=== PATIENT | female | born 1985 | race Caucasian/White ===

== ENCOUNTER 2020-03-31 14:52 | Inpatient (IN) | payer MEDICARE, OTHER ==
[2020-03-31 15:07] LABS: Glucose,Whole Blood 106 mg/dL (75-99)
[2020-03-31] MEDS ORDERED: SODIUM CHLORIDE 0.9% 1,000 ML IV STA ×2 (15:21)
[2020-03-31] MEDS ORDERED: HYDROCORTISONE SUCCINATE 100 MG/2 ML VIAL IV STA (15:26)
--- NOTE | 2020-03-31 15:27 | ED ---
General Adult HPI - General Chief complaint: Syncope Stated complaint: Syncope Time Seen by Provider: 03/31/20 15:06 Source: patient, RN notes reviewed, old records reviewed (Reports reviewed from [facility] including ED note and radiology reports and lab work) Mode of arrival: ambulatory Limitations: no limitations - History of Present Illness Initial comments: Patient is a pleasant 4-year-old female with complex past medical history presenting to the emergency Department as a transfer from [facility]. Patient went there for syncopal episode. Patient does not recall the episode, patient states she was sitting a chair however woke up on the floor. Patient has history of similar episodes once many years ago. Patient has not ate or drank anything yet today. Patient planes of feeling hungry. Patient states she has had some mild dysuria. Patient states her blood pressure is chronically low and believes and 85 blood pressure is fairly normal for her. Patient has not had her Cortef yet today. - Related Data Home Medications Medication Instructions Recorded Confirmed Desmopressin [Ddavp] 1 tab PO TID 02/06/14 04/10/14 Dexamethasone 0.5 mg PO QAM 02/06/14 04/10/14 Escitalopram [Lexapro] 20 mg PO HS 02/06/14 04/10/14 Estrogen,Con/M-Progest Acet 1 tab PO QAM 02/06/14 04/10/14 [Prempro 0.45-1.5 mg Tablet] Furosemide 20 mg PO QAM 02/06/14 04/10/14 Levothyroxine Sodium [Levoxyl] 175 mcg PO QAM 02/06/14 04/10/14 Methylphenidate HCl [Ritalin] 20 mg PO TID PRN 02/06/14 04/10/14 Multivitamins, Thera [Multivitamin] 1 tab PO DAILY 02/06/14 04/10/14 metFORMIN HCL [Glucophage] 500 mg PO BID 02/06/14 04/10/14 rOPINIRole HCL [Requip] 0.25 mg PO HS 02/06/14 04/10/14 Allergies Allergy/AdvReac Type Severity Reaction Status Date / Time No Known Allergies Allergy Verified 03/31/20 15:08 Review of Systems ROS Statement: Those systems with pertinent positive or pertinent negative responses have been documented in the HPI. ROS Other: All systems not noted in ROS Statement are negative. Constitutional: Denies: fever Eyes: Denies: eye pain ENT: Denies: ear pain Respiratory: Denies: dyspnea Cardiovascular: Denies: chest pain Endocrine: Denies: fatigue Gastrointestinal: Denies: abdominal pain Genitourinary: Reports: as per HPI Musculoskeletal: Denies: back pain Skin: Denies: rash Neurological: Denies: weakness Past Medical History Past Medical History: Memory Impairment, Sleep Apnea/CPAP/BIPAP Additional Past Medical History / Comment(s): narcolepsy, diabetes incipedus, varicos veins, History of Any Multi-Drug Resistant Organisms: None Reported Additional Past Surgical History / Comment(s): Brain Tumor removal x2 1998 and 2000 Past Anesthesia/Blood Transfusion Reactions: No Reported Reaction Past Psychological History: Depression Smoking Status: Never smoker Past Alcohol Use History: None Reported, Rare Past Drug Use History: None Reported - Past Family History Mother Family Medical History: Diabetes Mellitus General Exam Limitations: no limitations General appearance: alert, in no apparent distress Head exam: Present: atraumatic Eye exam: Present: normal appearance, PERRL ENT exam: Present: normal oropharynx Neck exam: Present: normal inspection. Absent: tenderness Respiratory exam: Present: normal lung sounds bilaterally Cardiovascular Exam: Present: regular rate, normal rhythm GI/Abdominal exam: Present: soft. Absent: tenderness Extremities exam: Present: normal inspection Neurological exam: Present: alert, CN II-XII intact. Absent: motor sensory deficit Expanded Motor strength exam: RUE: 5, LUE: 5, RLE: 5, LLE: 5 Eye Response: (4) open spontaneously Motor Response: (6) obeys commands Verbal Response: (5) oriented Psychiatric exam: Present: normal affect, normal mood Skin exam: Present: normal color Course Vital Signs 03/31/20 03/31/20 14:55 15:40 Temperature 97.8 F Pulse Rate 76 76 Respiratory 18 20 Rate Blood Pressure 86/50 97/62 O2 Sat by Pulse 100 100 Oximetry - Reevaluation(s) Reevaluation #1: 03/31/20 15:26 Case was discussed with Dr. Naylor who is aware of patient and would like call back if patient's symptoms change or worsen. 03/31/20 15:43 Blood cultures and lactic acid were done at [place] EKG Findings - EKG Comments: EKG Findings:: Normal sinus rhythm 69. MN 158. QRS 90. QT 406. QTc 435. Normal axis. Normal QRS. No acute ST change. Medical Decision Making - Medical Decision Making Patient to blood pressures in the upper 90s. Patient updated on results and plan. Dr. García has been paged for admission, covering for Dr. Marcelo, who admits for Dr. Gant. - Lab Data Result diagrams: 03/31/20 15:25 03/31/20 15:25 Lab Results 03/31/20 03/31/20 03/31/20 Range/Units 15:05 15:25 15:25 WBC 7.8 (3.8-10.6) k/uL RBC 5.01 (3.80-5.40) m/uL Hgb 14.4 (11.4-16.0) gm/dL Hct 43.1 (34.0-46.0) % MCV 85.9 (80.0-100.0) fL MCH 28.7 (25.0-35.0) pg MCHC 33.4 (31.0-37.0) g/dL RDW 13.5 (11.5-15.5) % Plt Count 244 (150-450) k/uL MPV 7.2 Neutrophils % 59 % Lymphocytes % 31 % Monocytes % 4 % Eosinophils % 4 % Basophils % 2 % Neutrophils # 4.6 (1.3-7.7) k/uL Lymphocytes # 2.4 (1.0-4.8) k/uL Monocytes # 0.3 (0-1.0) k/uL Eosinophils # 0.3 (0-0.7) k/uL Basophils # 0.2 (0-0.2) k/uL PT 10.4 (9.0-12.0) sec INR 1.0 (<1.2) APTT 22.2 (22.0-30.0) sec Sodium (137-145) mmol/L Potassium (3.5-5.1) mmol/L Chloride (98-107) mmol/L Carbon Dioxide (22-30) mmol/L Anion Gap mmol/L BUN (7-17) mg/dL Creatinine (0.52-1.04) mg/dL Est GFR (CKD-EPI)AfAm (>60 ml/min/1.73 sqM) Est GFR (CKD-EPI)NonAf (>60 ml/min/1.73 sqM) Glucose (74-99) mg/dL POC Glucose (mg/dL) 106 H (75-99) mg/dL POC Glu Water Supply Technician Noris Ramirez Calcium (8.4-10.2) mg/dL Magnesium (1.6-2.3) mg/dL Total Bilirubin (0.2-1.3) mg/dL AST (14-36) U/L ALT (4-34) U/L Alkaline Phosphatase (38-126) U/L Troponin I (0.000-0.034) ng/mL Total Protein (6.3-8.2) g/dL Albumin (3.5-5.0) g/dL Free T4 (0.78-2.19) ng/dL Free T3 pg/mL (2.8-5.3) pg/ml 03/31/20 03/31/20 03/31/20 Range/Units 15:25 15:25 15:37 WBC (3.8-10.6) k/uL RBC (3.80-5.40) m/uL Hgb (11.4-16.0) gm/dL Hct (34.0-46.0) % MCV (80.0-100.0) fL MCH (25.0-35.0) pg MCHC (31.0-37.0) g/dL RDW (11.5-15.5) % Plt Count (150-450) k/uL MPV Neutrophils % % Lymphocytes % % Monocytes % % Eosinophils % % Basophils % % Neutrophils # (1.3-7.7) k/uL Lymphocytes # (1.0-4.8) k/uL Monocytes # (0-1.0) k/uL Eosinophils # (0-0.7) k/uL Basophils # (0-0.2) k/uL PT (9.0-12.0) sec INR (<1.2) APTT (22.0-30.0) sec Sodium 143 (137-145) mmol/L Potassium 4.1 (3.5-5.1) mmol/L Chloride 108 H (98-107) mmol/L Carbon Dioxide 29 (22-30) mmol/L Anion Gap 6 mmol/L BUN 18 H (7-17) mg/dL Creatinine 0.55 (0.52-1.04) mg/dL Est GFR (CKD-EPI)AfAm >90 (>60 ml/min/1.73 sqM) Est GFR (CKD-EPI)NonAf >90 (>60 ml/min/1.73 sqM) Glucose 186 H (74-99) mg/dL POC Glucose (mg/dL) 96 (75-99) mg/dL POC Glu Water Supply Technician ID Mandi Alves Calcium 9.4 (8.4-10.2) mg/dL Magnesium 2.1 (1.6-2.3) mg/dL Total Bilirubin 0.5 (0.2-1.3) mg/dL AST 35 (14-36) U/L ALT 20 (4-34) U/L Alkaline Phosphatase 65 (38-126) U/L Troponin I <0.012 (0.000-0.034) ng/mL Total Protein 7.7 (6.3-8.2) g/dL Albumin 4.2 (3.5-5.0) g/dL Free T4 0.45 L (0.78-2.19) ng/dL Free T3 pg/mL 3.6 (2.8-5.3) pg/ml Disposition Clinical Impression: Syncope Disposition: ADMITTED IP TO THIS HOSP Is patient prescribed a controlled substance at d/c from ED?: No Referrals: Ronan Gant MD [Primary Care Provider] - 1-2 days Decision Time: 16:14
[2020-03-31 15:36] LABS: Basophils # (A) 0.2 k/uL (0-0.2); Basophils % (A) 2 %; Eosinophils # (A) 0.3 k/uL (0-0.7); Eosinophils % (A) 4 %; HCT 43.1 % (34.0-46.0); HGB 14.4 gm/dL (11.4-16.0); Lymphocytes # (A) 2.4 k/uL (1.0-4.8); Lymphocytes % (A) 31 %; MCH 28.7 pg (25.0-35.0); MCHC 33.4 g/dL (31.0-37.0); MCV 85.9 fL (80.0-100.0); Mean Platelet Volume 7.2; Monocytes # (A) 0.3 k/uL (0-1.0); Monocytes % (A) 4 %; Neutrophils # (A) 4.6 k/uL (1.3-7.7); Neutrophils % (A) 59 %; Platelet Count 244 k/uL (150-450); RBC 5.01 m/uL (3.80-5.40); RDW 13.5 % (11.5-15.5); WBC 7.8 k/uL (3.8-10.6)
[2020-03-31 15:45] LABS: ALT 20 U/L (4-34); AST 35 U/L (14-36); African American GFR (CKD) >90 (>60 ml/min/1.73 sqM); Albumin 4.2 g/dL (3.5-5.0); Alkaline Phosphatase 65 U/L (38-126); Anion Gap 6 mmol/L; Blood Urea Nitrogen 18 mg/dL (7-17); Calcium 9.4 mg/dL (8.4-10.2); Carbon Dioxide 29 mmol/L (22-30); Chloride 108 mmol/L (98-107); Glucose 186 mg/dL (74-99); Magnesium 2.1 mg/dL (1.6-2.3); Non-African American GFR(CKD) >90 (>60 ml/min/1.73 sqM); Potassium 4.1 mmol/L (3.5-5.1); Sodium 143 mmol/L (137-145); Total Bilirubin 0.5 mg/dL (0.2-1.3); Total Protein 7.7 g/dL (6.3-8.2)
[2020-03-31 15:48] LABS: Glucose,Whole Blood 96 mg/dL (75-99)
[2020-03-31 16:02] LABS: T4, Free (Free Thyroxine) 0.45 ng/dL (0.78-2.19)
[2020-03-31 16:05] LABS: Partial Thromboplastin Time 22.2 sec (22.0-30.0); Prothrombin Time 10.4 sec (9.0-12.0)
[2020-03-31] MEDS ORDERED: NALOXONE 0.4 MG/ML 1 ML VIAL IV PRN (16:14)
[2020-03-31] MEDS ORDERED: DEXTROSE 5%-0.45% NACL 1,000 ML IV SCH (17:15)
[2020-03-31 17:43] LABS: Glucose,Whole Blood 74 mg/dL (75-99)
[2020-03-31 19:04] LABS: Amphetamine Screen,Urine Detected (NotDetected); Barbiturate Screen,Urine Not Detected (NotDetected); Benzodiazepines Screen,Urine Not Detected (NotDetected); Cocaine Screen,Urine Not Detected (NotDetected); Methadone Screen, Urine Not Detected (NotDetected); Opiate Screen,Urine Not Detected (NotDetected); Oxycodone Screen, Urine Not Detected (NotDetected); Phencyclidine Screen,Urine Not Detected (NotDetected); Tricyclic Antidepressant,Urine Not Detected (NotDetected); Urn Cannabinoid Scrn Not Detected (NotDetected)
[2020-03-31] MEDS ORDERED: HYOSCYAMINE SULFATE 0.125 MG TAB PO STA (19:58)
[2020-03-31] MEDS: DOPamine DRIP 800 MG in DEXTROSE/WATER 1 250ML.BAG IV SCH (20:07)
--- NOTE | 2020-03-31 20:23 | P.EPPROC ---
- EP Procedure Note Electrophysiology Procedure Note: This is Dr. Schmitz dictating a consult on this patient The patient was interviewed and examined IMPRESSION / ASSESSMENT: Patient presented with syncope Recurrent sinus pauses up to 6 seconds Severe bradycardia Patient is quite drowsy at this time, appears very sleepy Alert and oriented when she opens her eyes and answers appropriately, makes appropriate comments Twelve-lead ECG shows sinus rhythm normal IA narrow QRS normal QT interval no J- point elevation no ST segment abnormalities in the precordial leads Past history of a brain tumor PLAN: Telemetry monitoring 3 S. transferred Low-dose dopamine infusion, IV Hyoscyamine by mouth 1 dose stat and thereafter long-acting This appears to be possibly vagally mediated However a CT of the brain and neuroimaging is elevated to look for any mass effect within the cranium that could explain this Neurology is already been consulted HPI Patient presented with syncope She doesn't give much of a history but she does make very appropriate comments whenever she opens her eyes She says she has been sleepy she does not clearly tell me whether she fell on lost consciousness She denies any chest discomfort she does not appear short of breath When she opens her eyes she wakes very appropriate comments. She remembers that she get some medications from [facility] [employer]. She knows she lives in [place] and that she was packing because she had to move She couldn't tell me why she was moving she remembers taking Adderall When I asked her why she was so sleepy she said she hasn't received any of her medications and hence she is very sleepy ROS: No fever chills or rigors, no cough, phlegm or expectoration, no nausea, vomiting or diarrhea, no hematuria, dysuria, no musculoskeletal complaints, no strokes or seizures, no skin lesions. EXAMINATION: Afebrile 97.4, pulse rate in the 60s and 70s Telemetry shows several episodes of sinus bradycardia and pauses up to 6 seconds Blood pressure 85/54 mmHg Looks very comfortable but very drowsy and sleepy line she does open her eyes and respond Normal heart sounds no murmurs no gallop or rub Breath sounds are reduced bilaterally on account of poor inspiratory effort but no rhonchi no crackles Abdomen is soft Central obesity noted No lower extremity edema REVIEW OF LABS, ECG & MEDICAL DATA She is a fairly long list of medications and I will look for interactions that could precipitate bradycardia and sinus pauses I spoke to the pharmacist and other than desmopressin which could cause variations in heart rate bold tachycardia and bradycardia there are no other medications that can be incriminated as a cause of her sinus pauses Labs are reviewed Normal white count normal hemoglobin and normal platelet count normal differential Normal sodium and potassium Urine creatinine is normal Glucose is elevated Normal troponins TSH 1.1 Drug screen, urine screen positive for amphetamines
[2020-03-31 21:27] LABS: Glucose,Whole Blood 91 mg/dL (75-99)
--- NOTE | 2020-03-31 21:43 | CT ---
EXAMINATION TYPE: CT brain wo con DATE OF EXAM: 03/31/2020 COMPARISON: Today HISTORY: ams CT DLP: 1172.4 mGycm Automated exposure control for dose reduction was used. Exam performed with no contrast. There is hypodensity in the inferior sawyer-white matter of the right frontal lobe. This is adjacent to the cribriform plate. There is no midline shift. There is no sign of intracranial hemorrhage. There is old right frontal and right temporal craniotomy defect. IMPRESSION: Hypodensity in the inferior right temporal lobe 3 x 1 cm consistent with encephalomalacia that is unc hanged compared to exam this morning. No acute intracranial abnormality.
[2020-04-01] MEDS ORDERED: HYDROCORTISONE SUCCINATE 100 MG/2 ML VIAL IV SCH
[2020-04-01] MEDS: HYOSCYAMINE SULFATE 0.375 MG TAB.ER.12H PO SCH ×3 (00:08→23:21)
[2020-04-01] MEDS: DOPamine DRIP 800 MG in DEXTROSE/WATER 1 250ML.BAG IV SCH ×2 (00:09→21:39)
[2020-04-01 05:22] LABS: Folate, Serum 22.4 ng/mL
[2020-04-01] MEDS: LEVOTHYROXINE 75 MCG TAB PO SCH (05:27)
[2020-04-01 05:47] LABS: Glucose,Whole Blood 137 mg/dL (75-99)
[2020-04-01] MEDS: MULTIVITAMINS, THERA 1 EACH TAB PO SCH (09:44)
[2020-04-01] MEDS: SERTRALINE 100 MG TAB PO SCH (09:44)
[2020-04-01] MEDS: PRAVASTATIN SODIUM 20 MG TAB PO SCH (09:44)
[2020-04-01] MEDS: HYDROCORTISONE 10 MG TAB PO SCH ×2 (09:45→15:06)
--- NOTE | 2020-04-01 11:16 | P.CNNES ---
History of Present Illness Consult date: 04/01/20 Requesting physician: Kulwant Tee Reason for Consult: syncope History of Present Illness: This is a 34 year-old woman with medical history of Right temporal tumor (benign) s/p resection in 1998 at [facility] and again in 1999 and/2000 at [facility], seizure, ADHD, memory impairment, narcolepsy, hypothy roidism, diabetes insepedius that was transfered from [facility] for a syncopal episode. He sent the was given limited information because of her memory loss. I attempted to contact the patient the grandmother was the next of kin and the patient mother who was present to contact via phone but only received voice messages. She stated that she does not recall the episode but remembers that the she was sitting in a chair and she woke up just before she landed on the floor. She said that she had urinary incontinence. She denies any bowel incontinence or tongue bites or soreness. Nobody was around or so she does not know if she had any jerking-like episode that. She has similar epi sodes in the past where she has episodes of falls. She cannot tell me exactly the details of her seizures or how frequent the episodes of loss of consciousness. She stated that she has narcolepsy so she is not sure of those episodes of loss of consciousness and urinary incontinence were seizures or narcolepsy. She cannot tell me exactly who she saw for her neurological workup in the past. She stated that it's been many years ago that she seems somebody. She was told that she had the history of seizures but cannot tell me what medications she was on or what medication she is currently on. 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 Workup in the hospital consisted of: Initial vital signs is the blood pressure of 86/58 with a heart rate of 76, respiratory of 18, temperature of 97.8 Fahrenheit oral and pulse ox of 90% at room air. CT of the head the was reported as hypodensity in the anterior right temporal lobe 3 x 1 cm consistent with encephalomalacia that is unchanged compared to the exam this morning. No acute intracranial abnormality. EKG is reported as the normal sinus rhythm. Ventricular rate of 69. Normal EKG. Initial white blood cell is 7.8 the Initial POC glucose is 106. The serum glucose is 186. Initial sodium was 143. Review of Systems Review of system: The 12 point system was reviewed and apparent positive and negative per HPI. Past Medical History Past Medical History: Memory Impairment, Sleep Apnea/CPAP/BIPAP Additional Past Medical History / Comment(s): narcolepsy, diabetes incipedus, varicos veins, History of Any Multi-Drug Resistant Organisms: None Reported Additional Past Surgical History / Comment(s): Brain Tumor removal x2 1998 and 2000 Past Anesthesia/Blood Transfusion Reactions: No Reported Reaction Past Psychological History: Depression Smoking Status: Never smoker Past Alcohol Use History: None Reported, Rare Past Drug Use History: None Reported - Past Family History Mother Family Medical History: Diabetes Mellitus Medications and Allergies Home Medications Medication Instructions Recorded Confirmed Type Furosemide 20 mg PO DAILY 02/06/14 03/31/20 History Multivitamins, Thera [Multivitamin] 1 tab PO DAILY 02/06/14 03/31/20 History Desmopressin Acetate 0.1 mg PO BID 03/31/20 03/31/20 History Hydrocortisone 5 mg PO DAILY@1600 03/31/20 03/31/20 History Hydrocortisone 10 mg PO DAILY 03/31/20 03/31/20 History Levothyroxine Sodium [Synthroid] 150 mcg PO DAILY 03/31/20 03/31/20 History Lisdexamfetamine Dimesylate 50 mg PO DAILY 03/31/20 03/31/20 History [Vyvanse] Loratadine 10 mg PO DAILY 03/31/20 03/31/20 History Meloxicam 15 mg PO DAILY 03/31/20 03/31/20 History Mirabegron [Myrbetriq] 50 mg PO DAILY 03/31/20 03/31/20 History Oxybutynin Chloride [Oxybutynin 15 mg PO DAILY 03/31/20 03/31/20 History Chloride ER] Potassium Chloride 10 meq PO DAILY 03/31/20 03/31/20 History Pravastatin Sodium [Pravachol] 20 mg PO DAILY 03/31/20 03/31/20 History Sertraline [Zoloft] 200 mg PO DAILY 03/31/20 03/31/20 History metFORMIN HCL [metFORMIN HCL ER] 500 mg PO BID 03/31/20 03/31/20 History Allergies Allergy/AdvReac Type Severity Reaction Status Date / Time No Known Allergies Allergy Verified 03/31/20 17:33 Physical Examination - Vital Signs Vital Signs: Vital Signs Temp Pulse Pulse Resp BP BP Pulse Ox 04/01/20 09:00 98.3 F 101 H 14 87/50 96 04/01/20 03:53 97.7 F 96 15 109/58 96 04/01/20 02:02 97.8 F 85 14 92/51 94 L 03/31/20 22:00 97.6 F 91 14 93/52 98 03/31/20 21:00 79 03/31/20 20:43 81 87/50 03/31/20 18:48 68 85/54 03/31/20 18:41 69 76/47 03/31/20 17:14 97.4 F L 73 18 90/58 100 03/31/20 16:48 76 20 98/61 100 03/31/20 15:40 76 20 97/62 100 03/31/20 14:55 97.8 F 76 18 86/50 100 Intake and Output 03/31/20 04/01/20 04/01/20 22:59 06:59 14:59 Intake Total 240 17.839 222 Output Total 525 2600 Balance -285 -2582.161 222 Intake: Intake, IV Titration 17.839 Amount DOPamine DRIP 800 mg In 17.839 Dextrose/Water 1 250ml. bag @ 2 MCG/KG/MIN 4.423 mls/hr IV .Q24H [facility] Rx#: [id number] Oral 240 222 Output: Urine 525 2600 Other: Voiding Method Indwelling Catheter Indwelling Catheter Weight 117.934 kg GENERAL: The patient is lying in bed and is not in acute distress. CHEST: The heart rate is regular rate rhythm. No murmurs to auscultation. No carotid bruit bilaterally. LUNG: Clear to auscultation bilaterally no wheezing noted throughout. Not labored breathing. ABDOMEN/GI: Bowel sounds present in all 4 quadrants. No tenderness to palpation throughout. NEUROLOGICAL: Higher mental function: The patient is awake, alert, oriented to self, place and time. Patient is following commands but slow to respond. No aphasia and no neglect. Cranial nerves: The pupils are round, equal (4mm)and reactive to light. Visual way: left upper quadrant hemianopsia to confrontation. Extraocular movement is intact no nystagmus is noted. Facial sensation is normal to touch throughout. The facial strength is normal throughout. Hearing is normal bilaterally to hand rub. Tongue is midline and moved [id number] without any difficulty. No dysarthria is noted. Shoulder shrug is normal bilaterally. Motor: Gait is deferred. The strength is 5 over 5 throughout. Normal tone and bulk. Cerebellum: Normal finger to nose bilaterally. Sensation: Sensation is normal to touch throughout. Reflexes (right/left): 2+ throughout. Plantars are downgoing bilaterally. Results Calcium is 9.4. AST of 35, ALC of 20. Ammonia is 79. Vitamin B12 is 597 which within normal limits. TSH is 1.10 with a free T4 is a 0.45. HCG nondetected. Her urine drug seen was positive for amphetamine. - Laboratory Findings CBC and BMP: 03/31/20 15:25 03/31/20 15:25 Abnormal Lab Findings: Abnormal Labs 03/31/20 03/31/20 03/31/20 15:05 15:25 16:51 Chloride 108 H BUN 18 H Glucose 186 H POC Glucose (mg/dL) 106 H Free T4 0.45 L Ur Amphetamines Screen Detected H 03/31/20 04/01/20 17:42 05:45 Chloride BUN Glucose POC Glucose (mg/dL) 74 L 137 H Free T4 Ur Amphetamines Screen Assessment and Plan Assessment: This is a 34 year-old woman with medical history of right temporal tumor (benign) s/p resection in 1998 at [facility] and again in at [facility], seizure, ADHD, memory impairment, narcolepsy, h ypothyroidism, diabetes insepedius that was transfered from [facility] for a syncopal episode. 1. Recurrent episode of loss of consciousness with urinary incontinence. Seems like epilepsy especially with history of right temporal tumor s/p resection. Cannot rule out narcolepsy as cause 2. History of right temporal tumor according to patient it's benign status post resection in 1998 as well as 3. Memory impairments likely due to #1 and #2 4. Narcolepsy 5. ADHD 6. History of diabetes insipidus Plan: Ordered routine EEG. I will start the patient on antiepileptic drug even if I don't see any epileptiform discharges or seizure on the EEG since I am concerned that these frequent episodes of loss of consciousness and urinary incontinence are seizures especially with a history of right the temporal tumor status post resection which the can be the focus of her seizures. I'll start the patient on Vimpat 50 mg twice a day. I'll also give the patient a loading dose of Vimpat. I did not start the patient on Keppra especially with her history of ADHD and possible underlying psych problems which Keppra can aggravate mood disorder. But if the Vimpat is too expensive, we can try Keppra and we'll see how the patient tolerates it. Electrophysiology team is on board. 2-D echo was ordered. The patient needs to follow-up with a neurologist as an outpatient within 1 week. Seizures are not detected on the routine EEGs then I recommend a shelter EEG or even epilepsy monitoring unit. I attempted to contact the patient the grandmother was the next the can and the the patient's mother was depressed but only received the voice messages. Thank you for the consultation. Duncan Slade M.D. Neuro-hospitalist Time with Patient: Greater than 30
[2020-04-01] MEDS ORDERED: LACOSAMIDE IV 150 MG in SODIUM CHLORIDE 0.9% 50 ML IVPB STA (11:22)
--- NOTE | 2020-04-01 15:07 | P.PN ---
Subjective Progress Note Date: 04/01/20 HISTORY OF PRESENT ILLNESS: Patient examined this morning at the bedside. Patient denies chest pain or pressure. She denies shortness of breath. No further episodes of syncope. property assessment monitor reveals heart rate in the 80s. Patient had a 2.8 second pause around midnight. She remains on dopamine at 2 mcg/kg/min. PHYSICAL EXAM: VITAL SIGNS: Reviewed. GENERAL: Well-developed in no acute distress. NECK: Supple. No JVD or thyromegaly LUNGS: Respirations even and unlabored. Lungs essentially clear to auscultation bilaterally. HEART: Regular rate and rhythm. S1 and S2 heard. EXTREMITIES: Normal range of motion. No clubbing or cyanosis. Peripheral p ulses intact. No lower extremity edema ASSESSMENT: Syncope Recurrent sinus pauses up to 6 seconds Severe bradycardia History of benign right temporal brain tumor, status post resection in 1998 and also in Memory impairment Narcolepsy ADHD Hypothyroidism History of adrenal insufficiency PLAN: Neurology consulted who feels recurrent episodes of syncope may be secondary to epilepsy. Patient has been started on Vimpat. 2-D echo has been ordered. Await results Wean off Dopamine if heart rate tolerates Further recommendations pending patient course Nurse practitioner note has been reviewed by physician. Signing provider agrees with the documented findings, assessment, and plan of care. Objective - Vital Signs Vital signs: Vital Signs Temp 98.3 F 04/01/20 09:00 Pulse 101 H 04/01/20 09:00 Resp 14 04/01/20 09:00 BP 87/50 04/01/20 09:00 Pulse Ox 96 04/01/20 09:00 Intake & Output 03/31/20 04/01/20 04/01/20 18:59 06:59 18:59 Intake Total 240 17.839 222 Output Total 3125 Balance 240 -3107.161 222 Weight 117.934 kg Intake: Intake, IV Titration 17.839 Amount DOPamine DRIP 800 mg In 17.839 Dextrose/Water 1 250ml. bag @ 2 MCG/KG/MIN 4.423 mls/hr IV .Q24H [facility] Rx#: [id number] Oral 240 222 Output: Urine 3125 Other: Voiding Method Indwelling Catheter - Labs CBC & Chem 7: 03/31/20 15:25 03/31/20 15:25 Labs: Abnormal Lab Results - Last 24 Hours (Table) 03/31/20 03/31/20 03/31/20 Range/Units 15:05 15:25 16:51 Chloride 108 H (98-107) mmol/L BUN 18 H (7-17) mg/dL Glucose 186 H (74-99) mg/dL POC Glucose (mg/dL) 106 H (75-99) mg/dL Free T4 0.45 L (0.78-2.19) ng/dL Ur Amphetamines Screen Detected H (NotDetected) 03/31/20 04/01/20 Range/Units 17:42 05:45 Chloride (98-107) mmol/L BUN (7-17) mg/dL Glucose (74-99) mg/dL POC Glucose (mg/dL) 74 L 137 H (75-99) mg/dL Free T4 (0.78-2.19) ng/dL Ur Amphetamines Screen (NotDetected) Microbiology - Last 24 Hours (Table) 03/31/20 16:51 Urine Culture - Preliminary Urine,Catheterized
--- NOTE | 2020-04-01 16:01 | HP ---
HISTORY AND PHYSICAL DATE OF SERVICE: 04/01/2020. CHIEF COMPLAINT: Recurrent episodes of syncope. HISTORY OF PRESENT ILLNESS: This 34-year-old woman with a past medical history of memory impairment, history of left inferior frontal brain tumor removal, apparently benign, twice in 1998 and 2000, history of narcolepsy, history of diabetes insipidus, varicose veins, is followed by Dr. Gant in the outpatient setting. She was complaining of syncope. The patient had syncope last night. The patient went to [facility] and the patient was transferred to [facility] for further evaluation and treatment. The patient is unable to recall the episode. The patient was sitting in a chair and woke up on the floor. Similar episodes were happening previously a year ago. EKG showed prolonged sinus pauses and sinus bradycardia. Neurology evaluation was done. Dr. Song has recommended empirical antiplatelet therapy because of the previous history of multiple brain surgeries. There is no history of any fever, rigor or chills. No history of headache, loss of consciousness, seizures. PAST MEDICAL HISTORY: History of sleep apnea, history of CPAP, BiPAP, history of memory impairment, history of narcolepsy, diabetes mellitus, varicose veins, history of depression. HOME MEDICATIONS: 1. Hydrocortisone 5 mg and 10 mg. 2. Pravachol. 3. Multivitamins. 4. Loratadine. 5. Vyvanse. 6. Zoloft. 7. Furosemide. 8. Synthroid. 9. Desmopressin. 10.KCl. 11.Metformin. 12.Oxybutynin. 13.Myrbetriq. 14.Meloxicam. ALLERGIES: NONE. FAMILY HISTORY: History of diabetes mellitus in the family. SOCIAL HISTORY: No history of smoking. No history of alcohol. REVIEW OF SYSTEMS: ENT: As mentioned earlier. CARDIOVASCULAR SYSTEM: No angina, palpitations. RESPIRATORY SYSTEM: No cough, hemoptysis. GI: No nausea, vomiting. : No dysuria or retention. NERVOUS SYSTEM: As mentioned earlier. ALLERGY/IMMUNOLOGY: No asthma, hayfever. MUSCULOSKELETAL: No history of arthritis. CONSTITUTIONAL: As mentioned earlier.. DERMATOLOGY: Negative. ENDOCRINE: As mentioned earlier. RHEUMATOLOGY: As mentioned earlier. PSYCHIATRY: Negative. PHYSICAL EXAMINATION: Patient alert and oriented x3. Pulse 101, blood pressure 109/58, respiration 15, temperature 97.7, pulse ox 96% on room air. HEENT: Conjunctivae normal. Oral mucosa moist. Vision is diminished bilaterally. NECK: No jugular venous distention. No carotid bruit. No lymph node enlargement. CARDIOVASCULAR SYSTEM: S1, S2 muffled. No S3. No S4. RESPIRATORY SYSTEM: Breath sounds diminished at the bases. No rhonchi. No crackles. ABDOMEN: Soft, non-tender. No mass palpable. LEGS: No edema. No swelling. NERVOUS SYSTEM: Higher functions as mentioned earlier. The vision is diminished. No focal motor or sensory deficit. LYMPHATICS: No lymph node palpable in neck, axillae or groin. SKIN: No ulcer, rash, bleeding. JOINTS: No active deforming arthropathy. LABS: Labs at this time show glucose 137, vitamin B cortisol is normal. Sodium 143, potassium 4.1. Free T4 is 0.45, but free T3 is normal. TSH is also normal. ASSESSMENT: 1. Recurrent episodes of syncope, possibly cardiac syncope induced by prolonged sinus pauses. 2. Rule out epilepsy. 3. Decreased free T4. 4. Increased random blood sugar. 5. History of memory impairment. 6. History of left inferior temporal lobe brain tumor removal, possibly benign, twice in 1998 and 2000. 7. History of diabetes insipidus. 8. History of hypocortisolism. 9. History of narcolepsy. 10.History of varicose veins. 11.History of sleep apnea. 12.History of depression. 13.Obesity with body mass index 49.1. 14.FULL CODE. RECOMMENDATIONS AND DISCUSSION: In this 34-year-old woman who presented with multiple medical issues, at this time I recommend to continue the current medication, continue with symptomatic treatment. Otherwise at this time I recommend continuing with the Vimpat recommended by Dr. Slade, neurologist. Otherwise, continue the previous dose of steroids. Continue with telemetry. Empiric antibiotics have been given. The prognosis is guarded because of multiple complex medical issues. Further recommendations to follow. A copy of this dictation is being forwarded to Dr. Gant, who is the primary physician. MMRAMIROL / NIKON: [id number] / MTDD
--- NOTE | 2020-04-01 19:48 | EEG ---
ELECTROENCEPHALOGRAM REPORT DATE OF SERVICE: 04/01/2020 CLINICAL HISTORY: This is a 34-year-old woman with a history of right temporal mass, status post resection in 1998, and another surgeryin , seizure and narcolepsy. She was transferred from an outside facility for an episode of loss of consciousness. This video EEG was obtained to evaluate for seizure and epileptiform activity. RELEVANT MEDICATION: Unknown. EEG TYPE: A routine 21-channel EEG was performed with video using the 10/20 electrode placement system. DESCRIPTION: Wakefulness and drowsiness are obtained. During wakefulness there is a posterior-dominant rhythm of low to moderate voltage, well modulated 6-7 hertz over bilateral hemispheres. During drowsiness there is slowing and attenuation of the background activity. There was no physiological stage II sleep seen over bilateral hemispheres. There is frequent moderate voltage nonrhythmic frontal central temporal 3-4 hertz delta slowing over bilateral hemispheres, the right more than the left. There is a high voltage over the right frontal central electrode consistent with the patient's previous history of breach. Interictal and ictal: None. ACTIVATION PROCEDURES: Photic stimulation did not evoke a posterior driving response. Hyperventilation was not performed. CLINICAL INTERPRETATION: This is an abnormal routine EEG. The background slowing is consistent with mild to moderate encephalopathy of nonspecific etiology. The focal slowing noted above is suggestive of focal cerebral dysfunction. She does have a history of a right temporal mass. 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 There are no epileptiform discharges or seizure seen during this study. Clinical correlation is recommended. MMODL / IJN: [id number] / [facility]
[2020-04-01] MEDS: LACOSAMIDE 50 MG TABLET PO SCH (20:08)
[2020-04-02] MEDS: LEVOTHYROXINE 75 MCG TAB PO SCH (06:04)
[2020-04-02] MEDS: LACOSAMIDE 50 MG TABLET PO SCH ×2 (09:29→20:28)
[2020-04-02] MEDS: PRAVASTATIN SODIUM 20 MG TAB PO SCH (09:29)
[2020-04-02] MEDS: MULTIVITAMINS, THERA 1 EACH TAB PO SCH (09:29)
[2020-04-02] MEDS: SERTRALINE 100 MG TAB PO SCH (09:29)
[2020-04-02] MEDS: HYDROCORTISONE 10 MG TAB PO SCH ×2 (09:30→16:33)
[2020-04-02] MEDS: HYOSCYAMINE SULFATE 0.375 MG TAB.ER.12H PO SCH ×2 (13:05→23:55)
--- NOTE | 2020-04-02 13:20 | P.PN ---
Subjective Progress Note Date: 04/02/20 HISTORY OF PRESENT ILLNESS: Patient examined this morning at the bedside. Patient denies chest pain or pressure. She denies shortness of breath. No further episodes of syncope. pvc monitor reveals heart rate in the 80s. She remains on dopamine at 2 mcg/kg/min. Nursing reports they attempted to wean off dopamine but the patient's heart rate was in the 40s overnight. The patient was asymptomatic however. TSH 1.100. Free T4 0.45. PHYSICAL EXAM: VITAL SIGNS: Reviewed. GENERAL: Well-developed in no acute distress. NECK: Supple. No JVD or thyromegaly LUNGS: Respirations even and unlabored. Lungs essentially clear to auscultation bilaterally. HEART: Regular rate and rhythm. S1 and S2 heard. EXTREMITIES: Normal range of motion. No clubbing or cyanosis. Peripheral pulses intact. No lower extremity edema ASSESSMENT: Syncope Recurrent sinus pauses up to 6 seconds Severe bradycardia History of benign right temporal brain tumor, status post resection in 1998 and also in Memory impairment Narcolepsy ADHD Hypothyroidism History of adrenal insufficiency PLAN: Neurology consulted who feels recurrent episodes of syncope may be secondary to epilepsy. Patient has been started on Vimpat. 2-D echo has been ordered. Await results Wean off Dopamine if heart rate tolerates Patient with abnormal free T4. Patient may need adjustment in her Synthroid. Will defer to internal medicine Further recommendations pending patient course Nurse practitioner note has been reviewed by physician. Signing provider agrees with the documented findings, assessment, and plan of care. Objective - Vital Signs Vital signs: Vital Signs Temp 98.1 F 04/02/20 12:00 Pulse 88 04/02/20 12:00 Resp 16 04/02/20 12:00 BP 129/69 04/02/20 12:00 Pulse Ox 96 04/02/20 12:00 Intake & Output 04/01/20 04/02/20 04/02/20 18:59 06:59 18:59 Intake Total 751.893 120 Output Total 800 2575 Balance -48.107 -2575 120 Weight 40.5 kg Intake: Intake, IV Titration 67.893 Amount DOPamine DRIP 800 mg In 67.893 Dextrose/Water 1 250ml. bag @ 2 MCG/KG/MIN 4.423 mls/hr IV .Q24H [facility] Rx#: [id number] Oral 684 120 Output: Urine 800 2575 Other: Voiding Method Indwelling Catheter Indwelling Catheter Indwelling Catheter - Labs CBC & Chem 7: 03/31/20 15:25 03/31/20 15:25 Labs: Microbiology - Last 24 Hours (Table) 03/31/20 16:51 Urine Culture - Preliminary Urine,Catheterized Gram Neg Bacilli
[2020-04-02 13:46] VITALS: BMI 16.8
--- NOTE | 2020-04-02 14:39 | P.PN ---
Subjective Progress Note Date: 04/02/20 Patient was seen at bedside and the she stated that she's doing well. No further seizure-like episodes. Objective - Vital Signs Vital signs: Vital Signs Temp 98.1 F 04/02/20 12:00 Pulse 88 04/02/20 12:00 Resp 16 04/02/20 12:00 BP 129/69 04/02/20 12:00 Pulse Ox 96 04/02/20 12:00 Intake & Output 04/01/20 04/02/20 04/02/20 18:59 06:59 18:59 Intake Total 751.893 120 Output Total 800 2575 Balance -48.107 -2575 120 Weight 40.5 kg 40.5 kg Intake: Intake, IV Titration 67.893 Amount DOPamine DRIP 800 mg In 67.893 Dextrose/Water 1 250ml. bag @ 2 MCG/KG/MIN 4.423 mls/hr IV .Q24H [facility] Rx#: [id number] Oral 684 120 Output: Urine 800 2575 Other: Voiding Method Indwelling Catheter Indwelling Catheter Indwelling Catheter - Exam GENERAL: The patient is lying in bed and is not in acute distress. NEUROLOGICAL: Higher mental function: The patient is awake, alert, oriented to self, place and time. Patient is following commands but slow to respond. No aphasia and no neglect. Cranial nerves: The pupils are round, equal (4mm)and reactive to light. Visual way: left upper quadrant hemianopsia to confrontation. Extraocular movement is intact no nystagmus is noted. Facial sensation is normal to touch throughout. The facial strength is normal throughout. Hearing is normal dani aterally to hand rub. Tongue is midline and moved [id number] without any difficulty. No dysarthria is noted. Shoulder shrug is normal bilaterally. Motor: Gait is deferred. The strength is 5 over 5 throughout. Normal tone and bulk. Cerebellum: Normal finger to nose bilaterally. Sensation: Sensation is normal to touch throughout. Reflexes (right/left): 2+ throughout. Plantars are downgoing bilaterally. - Labs CBC & Chem 7: 03/31/20 15:25 03/31/20 15:25 Labs: Microbiology - Last 24 Hours (Table) 03/31/20 16:51 Urine Culture - Preliminary Urine,Catheterized Gram Neg Bacilli Assessment and Plan Assessment: This is a 34 year-old woman with medical history of right temporal tumor (benign) s/p resection in 1998 at [facility] and again in at [facility], seizure, ADHD, memory impairment, narcolepsy, hypothyroidism, diabetes insepedius that was transfered from [facility] for a syncopal episode. 1. Recurrent episode of loss of consciousness with urinary incontinence. Seems like epilepsy especially with history of right temporal tumor s/p resection. Cannot rule out narcolepsy as cause. 2. History of right temporal tumor according to patient it's benign status post resection in 1998 as well as 3. Memory impairments likely due to #1 and #2 4. Narcolepsy 5. ADHD 6. History of diabetes insipidus Plan: * Routine EEG on 04/01/20: The agitation was an abnormal routine EEG at. The back of slowing is consistent with mild to moderate encephalopathy of nonspecific etiology. The focal slowing the frontocentral temporal region more over the right than the left is suggestive of focal cerebral dysfunction. There is breach over the right frontocentral region is consistent with the patient skull defect from previous surgery. There are no epidural discharges or seizure seen on the EEG. * I loaded the patient was Vimpat 150 mg once on 04/01/2020 then started the patient on Vimpat 50 mg twice a day because I felt her episodes were likely due to epilepsy especially with the history of right temporal tumor s/p resection which is a focus for seizure I'll start the patient on Vimpat 50 mg twice a day. I'll also give the patient a loading dose of Vimpat. * I did not start the patient on Keppra especially with her history of ADHD and possible underlying psych problems which Keppra can aggravate mood disorder. But if the Vimpat is too expensive, we can try Keppra and we'll see how the patient tolerates it. * Electrophysiology team is on board. * The patient needs to follow-up with a neurologist as an outpatient within 1-2 week. * I recommend buttermaker continuous churn EEG as outpatient or even epilepsy monitoring unit to capture the events wether they are truly seizures. I attempted to contact the patient the grandmother was the next the can and the the patient's mother was depressed but only received the voice messages. No further work-up. The plan was discussed with the patient nurse Duncan Slade M.D. Neuro-hospitalist Time with Patient: Less than 30
[2020-04-02] MEDS: NEOMYCIN-BACITRACIN-POLY OINT 14 GM TUBE TOPICAL SCH (20:28)
[2020-04-02] MEDS: metFORMIN 500 MG TAB PO SCH (20:28)
[2020-04-02] MEDS: DESMOPRESSIN 0.2 MG TAB PO SCH (20:28)
[2020-04-02] MEDS: DOPamine DRIP 800 MG in DEXTROSE/WATER 1 250ML.BAG IV SCH (20:29)
--- NOTE | 2020-04-02 23:14 | PN ---
PROGRESS NOTE DATE OF SERVICE: 04/02/2020 This 34-year-old woman admitted with recurrent syncope is being closely monitored. Dr. Slade has recommended antiepileptic treatment with Vimpat. The EEG showed some focal slowing suggestive of focal cerebral dysfunction. The patient had history of right temporal mass and surgery also. Cardiology has seen the patient and recommended to keep the patient on a small dose of dopamine and wean off subsequently. The patient had abnormal free T4, but I will increase adjustment of the thyroid also. The cortisol level was only 2. PAST MEDICAL HISTORY: History reviewed. REVIEW OF SYSTEMS: CARDIOVASCULAR: No angina or palpitations. RESPIRATORY: as mentioned earlier. GI: As mentioned earlier. : No dysuria. NERVOUS SYSTEM: No focal deficits. CURRENT MEDICATIONS: Reviewed and include: Rocephin, Dopamine, Cortef, Levbid, Vimpat, Synthroid, multivitamins and Narcan. Doses reviewed. PHYSICAL EXAMINATION: Alert and oriented x3. Pulse 81, blood pressure 109/68, respiration 18. Temp 97.2. Pulse ox 100% on room air. HEENT: Conjunctivae normal. NECK: No JVD. CARDIOVASCULAR: S1, S2. RESPIRATORY SYSTEM: Breath sounds diminished at the bases. Scattered rhonchi and crackles. ABDOMEN: Soft. Nontender. LEGS are no edema. No swelling. NERVOUS SYSTEM: No focal deficits. LABORATORY DATA: CBC within normal limits and glucose 137. Other labs are noted. ASSESSMENT: 1. Recurrent episodes of syncope possibly secondary to cardiac syncope and prolonged sinus pauses. 2. Bradycardia. 3. Possible epilepsy. 4. Decreased free T4 with hypothyroidism. 5. Increased random blood sugar. 6. History of memory impairment. 7. Decreased cortisol with hypo system. 8. History of inferior anti temporal lobe brain tumor removal, possibly benign twice 1998 and 2000. 9. History of diabetes insipidus. 10.History of narcolepsy. 11.History of varicose veins. 12.History of sleep apnea. 13.History of depression. 14.Obesity with body mass of 49.1. 15.FULL CODE. RECOMMENDATIONS AND DISCUSSION: I recommend to continue current medications, symptomatic treatment. Otherwise, closely follow with Cardiology. Neurology. Vimpat empirically. I would also recommend increase the levothyroxine dose to 200 mcg and increase the hydrocortisone dose to 10 twice daily and continue to monitor. Increase the hydrocortisone dose to 15 mg daily and 7.5 mg in the evening. The overall prognosis guarded because of multiple complex medical conditions. Further recommendations to follow. Recommend endocrine consult as an outpatient. MMODL / IJN: [id number] / BRYCE
[2020-04-03] MEDS: LEVOTHYROXINE 100 MCG TAB PO SCH (06:27)
[2020-04-03] MEDS: metFORMIN 500 MG TAB PO SCH ×2 (06:32→17:37)
[2020-04-03] MEDS: NON FORMULARY DRUG (Lisdexamfetamine Dimesylate [Vyvanse] 50 MG Capsule) PO SCH (08:03)
[2020-04-03] MEDS: POTASSIUM CHLORIDE ER 10 MEQ TAB.ER.PRT PO SCH (08:04)
[2020-04-03] MEDS: MELOXICAM 7.5 MG TAB PO SCH (08:04)
[2020-04-03] MEDS: SERTRALINE 100 MG TAB PO SCH (08:04)
[2020-04-03] MEDS: PRAVASTATIN SODIUM 20 MG TAB PO SCH (08:05)
[2020-04-03] MEDS: HYDROCORTISONE 10 MG TAB PO SCH ×2 (08:05→15:28)
[2020-04-03] MEDS: DESMOPRESSIN 0.2 MG TAB PO SCH ×2 (08:05→20:16)
[2020-04-03] MEDS: LORATADINE 10 MG TAB PO SCH (08:05)
[2020-04-03] MEDS: MULTIVITAMINS, THERA 1 EACH TAB PO SCH (08:05)
[2020-04-03] MEDS: NON FORMULARY DRUG (Mirabegron [Myrbetriq] 50 MG Tab.Er.24h) PO SCH (08:06)
[2020-04-03] MEDS: LACOSAMIDE 50 MG TABLET PO SCH ×2 (08:06→20:17)
[2020-04-03] MEDS: OXYBUTYNIN 15 MG TAB.ER.24 PO SCH (09:41)
[2020-04-03] MEDS: FUROSEMIDE 20 MG TAB PO SCH (09:41)
--- NOTE | 2020-04-03 11:32 | P.PN ---
Subjective Progress Note Date: 04/03/20 She was seen at bedside and she said that she's doing well. She denies any further episodes of loss of consciousness or urinary incontinence. No further seizure-like episodes is noted by the nurse. Again the unable to get a hold off any family members regarding the patient's condition. Objective - Vital Signs Vital signs: Vital Signs Temp 97.4 F L 04/03/20 07:59 Pulse 82 04/03/20 07:59 Resp 16 04/03/20 08:00 BP 113/84 04/03/20 09:40 Pulse Ox 99 04/03/20 07:59 Intake & Output 04/02/20 04/03/20 04/03/20 18:59 06:59 18:59 Intake Total 534.943 120 Output Total 1 Balance 533.943 120 Weight 40.5 kg 110.6 kg Intake: Intake, IV Titration 54.943 Amount DOPamine DRIP 800 mg In 54.943 Dextrose/Water 1 250ml. bag @ 2 MCG/KG/MIN 4.423 mls/hr IV .Q24H [facility] Rx#: [id number] Oral 480 120 Output: Urine 1 Other: Voiding Method Indwelling Catheter Bedside Commode # Voids 1 1 - Exam GENERAL: The patient is lying in bed and is not in acute distress. HENT: Has scar from midline for superior right anterior forehead just around the hairline (from prior surgery). NEUROLOGICAL: Higher mental function: The patient is awake, alert, oriented to self, place and time. Patient is following commands but slow to respond. No aphasia and no neglect. Cranial nerves: The pupils are round, equal (4mm)and reactive to light. Visual way: left upper quadrant hemianopsia to confrontation. Extraocular movement is intact no nystagmus is noted. Facial sensation is normal to touch thr oughout. The facial strength is normal throughout. Hearing is normal bilaterally to hand rub. Tongue is midline and moved [id number] without any difficulty. No dysarthria is noted. Shoulder shrug is normal bilaterally. Motor: Gait is deferred. The strength is 5 over 5 throughout. Normal tone and bulk. Cerebellum: Normal finger to nose bilaterally. Sensation: Sensation is normal to touch throughout. Reflexes (right/left): 2+ throughout. Plantars are downgoing bilaterally. - Labs CBC & Chem 7: 03/31/20 15:25 03/31/20 15:25 Labs: Microbiology - Last 24 Hours (Table) 03/31/20 16:51 Urine Culture - Final Urine,Catheterized Escherichia coli Assessment and Plan Assessment: This is a 34 year-old woman with medical history of right temporal tumor (be nign) s/p resection in 1998 at [facility] and again in at [facility], seizure, ADHD, memory impairment, narcolepsy, hypothyroidism, diabetes insepedius that was transfered from [facility] for a syncopal episode. 1. Recurrent episode of loss of consciousness with urinary incontinence. Seems like epilepsy especially with history of right temporal tumor s/p resection. Cannot rule out narcolepsy as cause. 2. History of right temporal tumor according to patient it's benign status post resection in 1998 as well as 3. Memory impairments likely due to #1 and #2 4. Narcolepsy 5. ADHD 6. History of diabetes insipidus Plan: * Routine EEG on 04/01/20: The agitation was an abnormal routine EEG at. The back of slowing is consistent with mild to moderate encephalopathy of nonspecific etiology. The focal slowing the frontocentral temporal region more over the right than the left is suggestive of focal cerebral dysfunction. There is breach over the right frontocentral region is consistent with the patient skull defect from previous surgery. There are no epidural discharges or seizure seen on the EEG. * I loaded the patient was Vimpat 150 mg once on 04/01/2020 then started the patient on Vimpat 50 mg twice a day because I felt her episodes were likely due to epilepsy especially with the history of right temporal tumor s/p resection which is a focus for seizure I'll start the patient on Vimpat 50 mg twice a day. I'll also give the patient a loading dose of Vimpat. * I did not start the patient on Keppra especially with her history of ADHD and possible underlying psych problems which Keppra can aggravate mood disorder. But if the Vimpat is too expensive, we can try Keppra and we'll see how the patient tolerates it. * Electrophysiology team is on board. * The patient needs to follow-up with a neurologist as an outpatient within 1-2 week. * I recommend roasterman EEG as outpatient or even epilepsy monitoring unit to capture the events wether they are truly seizures. * I also recommend sleep study as outpatient. * Patient needs to follow-up with a neurologist as an outpatient, as well as the neurosurgery team within 2 weeks. I attempted to contact the patient the grandmother was the next the can and the the patient's mother was depressed but only received the voice messages. No further work-up. The plan was discussed with the patient nurse Duncan Slade M.D. Neuro-hospitalist Time with Patient: Less than 30
[2020-04-03 12:35] LABS: Basophils % (A) 1 %; Eosinophils # (A) 0.3 k/uL (0-0.7); Eosinophils % (A) 6 %; HGB 12.1 gm/dL (11.4-16.0); Lymphocytes # (A) 1.7 k/uL (1.0-4.8); Lymphocytes % (A) 31 %; MCH 28.3 pg (25.0-35.0); MCHC 32.9 g/dL (31.0-37.0); Mean Platelet Volume 7.5; Monocytes # (A) 0.2 k/uL (0-1.0); Monocytes % (A) 3 %; Neutrophils # (A) 3.2 k/uL (1.3-7.7); Neutrophils % (A) 58 %; Platelet Count 174 k/uL (150-450); RDW 13.9 % (11.5-15.5); WBC 5.5 k/uL (3.8-10.6)
[2020-04-03 12:49] LABS: African American GFR (CKD) >90 (>60 ml/min/1.73 sqM); Anion Gap 6 mmol/L; Blood Urea Nitrogen 18 mg/dL (7-17); Calcium 8.6 mg/dL (8.4-10.2); Carbon Dioxide 28 mmol/L (22-30); Chloride 107 mmol/L (98-107); Glucose 104 mg/dL (74-99); Non-African American GFR(CKD) >90 (>60 ml/min/1.73 sqM); Potassium 3.7 mmol/L (3.5-5.1); Sodium 141 mmol/L (137-145)
[2020-04-03] MEDS: HYOSCYAMINE SULFATE 0.375 MG TAB.ER.12H PO SCH ×2 (13:42→23:12)
[2020-04-03] MEDS: NEOMYCIN-BACITRACIN-POLY OINT 14 GM TUBE TOPICAL SCH ×2 (13:42→20:17)
--- NOTE | 2020-04-03 14:31 | P.PN ---
Subjective Progress Note Date: 04/03/20 HISTORY OF PRESENT ILLNESS: Patient examined this morning at the bedside. Patient denies chest pain or pressure. She denies shortness of breath. No further episodes of syncope. Patient has been weaned off dopamine. No further episodes of bradycardia or pauses. Her Synthroid dose has been adjusted per internal medicine. PHYSICAL EXAM: VITAL SIGNS: Reviewed. GENERAL: Well-developed in no acute distress. NECK: Supple. No JVD or thyromegaly LUNGS: Respirations even and unlabored. Lungs essentially clear to auscultation bilaterally. HEART: Regular rate and rhythm. S1 and S2 heard. EXTREMITIES: Normal range of motion. No clubbing or cyanosis. Peripheral pulses intact. No lower extremity edema ASSESSMENT: Syncope Recurrent sinus pauses up to 6 seconds Severe bradycardia History of benign right temporal brain tumor, status post resection in 1998 and also in Memory impairment Narcolepsy ADHD Hypothyroidism History of adrenal insufficiency PLAN: Continue current cardiac medications Patient is stable for discharge from a cardiac perspective We will follow on an as-needed basis. Please call with questions or concerns Nurse practitioner note has been reviewed by physician. Signing provider agrees with the documented findings, assessment, and plan of care. Objective - Vital Signs Vital signs: Vital Signs Temp 98 F 04/03/20 13:40 Pulse 78 04/03/20 13:40 Resp 16 04/03/20 13:40 BP 102/58 04/03/20 13:40 Pulse Ox 99 04/03/20 13:40 Intake & Output 04/02/20 04/03/20 04/03/20 18:59 06:59 18:59 Intake Total 534.943 240 Output Total 1 1500 Balance 533.943 -1260 Weight 40.5 kg 110.6 kg Intake: Intake, IV Titration 54.943 Amount DOPamine DRIP 800 mg In 54.943 Dextrose/Water 1 250ml. bag @ 2 MCG/KG/MIN 4.423 mls/hr IV .Q24H [facility] Rx#: [id number] Oral 480 240 Output: Urine 1 1500 Other: Voiding Method Indwelling Catheter Bedside Commode # Voids 1 1 - Labs CBC & Chem 7: 04/03/20 11:53 04/03/20 11:53 Labs: Abnormal Lab Results - Last 24 Hours (Table) 04/03/20 Range/Units 11:53 BUN 18 H (7-17) mg/dL Glucose 104 H (74-99) mg/dL Microbiology - Last 24 Hours (Table) 03/31/20 16:51 Urine Culture - Final Urine,Catheterized Escherichia coli
--- NOTE | 2020-04-03 16:19 | PN ---
PROGRESS NOTE DATE OF SERVICE: 04/03/2020 This 34-year-old woman who was admitted with recurrent episodes of syncope, possibly secondary to cardiac syncope and prolonged sinus pause, also had suspected seizure disorder. Now the patient has significant gait dysfunction. The patient apparently had a legal guardian. The patient was living in a house, where the patient had problems with the landlord, and the patient is supposed to move to an [facility] home at this time. The patient is being closely monitored. EEG has been reviewed. Dr. Slade from Neurology is following the patient closely. Past medical history reviewed. REVIEW OF SYSTEMS: CARDIOVASCULAR SYSTEM: No angina, palpitations. Otherwise as mentioned earlier. RESPIRATORY SYSTEM: No cough, hemoptysis. GI: As mentioned earlier. : No dysuria or retention. NERVOUS SYSTEM: As mentioned earlier. CURRENT MEDICATIONS: Reviewed. They include Rocephin 1 gram daily, desmopressin, dopamine, Cortef, Levbid, Vimpat, Synthroid, Claritin, Mobic, multivitamins, Ditropan, K-Dur, Pravachol, Zoloft. PHYSICAL EXAMINATION: Patient is alert, oriented x3. Pulse 78, blood pressure 102/58, respiration 16, temperature 98 degrees, pulse ox 99% on room air. HEENT: Conjunctivae normal. NECK: No jugular venous distention. CARDIOVASCULAR SYSTEM: S1, S2 muffled. RESPIRATORY SYSTEM: Breath sounds diminished at the bases. Bilateral scattered rhonchi and crackles. ABDOMEN: Soft, non-tender. LEGS: No edema. No swelling. NERVOUS SYSTEM: Diffusely weak. LABS: CBC within normal limits. BMP noted. Cortisol is 2. ASSESSMENT: 1. Recurrent episodes of syncope, possibly secondary to cardiac syncope and prolonged sinus pause. 2. Bradycardia. 3. Possible epilepsy. 4. Decreased free T4 with hypothyroidism. 5. Decreased serum cortisol with hypocortisolism. 6. Increased random blood sugar. 7. History of memory impairment. 8. 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 9. History of diabetes insipidus. 10.History of narcolepsy. 11.History of varicose veins. 12.History of sleep apnea. 13.History of depression. 14.Obesity with a body mass index of 49.1. 15.FULL CODE. RECOMMENDATIONS AND DISCUSSION: I recommend to continue current medications, continue with the monitoring, symptomatic treatment. Continue with Vimpat. Continue to increase dose of Synthroid and hydrocortisone. I would also recommend PT/OT evaluation and consider the patient for ECF rehab. sort worker to address social issues. Prognosis is extremely guarded because of multiple complex medical issues. Further recommendations to follow. MMODL / IJN: [id number] /
[2020-04-03 16:42] LABS: Glucose,Whole Blood 102 mg/dL (75-99)
[2020-04-03 20:21] LABS: Glucose,Whole Blood 105 mg/dL (75-99)
[2020-04-04] MEDS: LEVOTHYROXINE 100 MCG TAB PO SCH (05:41)
[2020-04-04 06:48] LABS: Glucose,Whole Blood 126 mg/dL (75-99)
[2020-04-04 07:32] LABS: Basophils % (A) 1 %; Eosinophils # (A) 0.3 k/uL (0-0.7); Eosinophils % (A) 5 %; HCT 34.2 % (34.0-46.0); HGB 11.9 gm/dL (11.4-16.0); Lymphocytes # (A) 2.2 k/uL (1.0-4.8); Lymphocytes % (A) 38 %; MCH 28.9 pg (25.0-35.0); MCHC 34.6 g/dL (31.0-37.0); MCV 83.5 fL (80.0-100.0); Mean Platelet Volume 6.9; Monocytes # (A) 0.2 k/uL (0-1.0); Monocytes % (A) 4 %; Neutrophils % (A) 51 %; Platelet Count 181 k/uL (150-450); RDW 13.4 % (11.5-15.5); WBC 5.9 k/uL (3.8-10.6)
[2020-04-04] MEDS: metFORMIN 500 MG TAB PO SCH ×2 (09:02→17:43)
[2020-04-04] MEDS: FUROSEMIDE 20 MG TAB PO SCH (09:02)
[2020-04-04] MEDS: PRAVASTATIN SODIUM 20 MG TAB PO SCH (09:03)
[2020-04-04] MEDS: MULTIVITAMINS, THERA 1 EACH TAB PO SCH (09:03)
[2020-04-04] MEDS: MELOXICAM 7.5 MG TAB PO SCH (09:03)
[2020-04-04] MEDS: LORATADINE 10 MG TAB PO SCH (09:03)
[2020-04-04] MEDS: LACOSAMIDE 50 MG TABLET PO SCH ×2 (09:04→21:11)
[2020-04-04] MEDS: SERTRALINE 100 MG TAB PO SCH (09:04)
[2020-04-04] MEDS: HYOSCYAMINE SULFATE 0.375 MG TAB.ER.12H PO SCH ×2 (09:04→23:54)
[2020-04-04] MEDS: DESMOPRESSIN 0.2 MG TAB PO SCH ×2 (09:22→21:11)
[2020-04-04] MEDS: HYDROCORTISONE 10 MG TAB PO SCH ×3 (09:22→15:26)
[2020-04-04] MEDS: OXYBUTYNIN 15 MG TAB.ER.24 PO SCH (09:22)
[2020-04-04] MEDS: POTASSIUM CHLORIDE ER 10 MEQ TAB.ER.PRT PO SCH (09:24)
[2020-04-04] MEDS: NON FORMULARY DRUG (Lisdexamfetamine Dimesylate [Vyvanse] 50 MG Capsule) PO SCH (09:26)
[2020-04-04] MEDS: NON FORMULARY DRUG (Mirabegron [Myrbetriq] 50 MG Tab.Er.24h) PO SCH (09:26)
[2020-04-04 11:22] LABS: Glucose,Whole Blood 135 mg/dL (75-99)
[2020-04-04] MEDS: NEOMYCIN-BACITRACIN-POLY OINT 14 GM TUBE TOPICAL SCH ×2 (11:58→21:11)
[2020-04-04 13:43] LABS: African American GFR (CKD) 136.9 (60.0-200.0); Anion Gap 6.8 mmol/L (4.00-12.00); BUN/Creat Ratio 31.67 Ratio (12.00-20.00); Calcium 8.5 mg/dL (8.7-10.3); Carbon Dioxide 27.2 mmol/L (21.6-31.8); Non-African American GFR(CKD) 118.1 (60.0-200.0); Potassium 3.9 mmol/L (3.5-5.5)
[2020-04-04 17:06] LABS: Glucose,Whole Blood 209 mg/dL (75-99)
[2020-04-04 20:07] LABS: Glucose,Whole Blood 113 mg/dL (75-99)
--- NOTE | 2020-04-04 21:14 | PN ---
PROGRESS NOTE DATE OF SERVICE: 04/04/2020 This 34-year-old woman was admitted with recurrent syncope as well as sinus pause, is being closely monitored. The patient is being empirically treated for epilepsy. Medications adjusted. Thyroid dose is increased and hydrocortisone dose is also increased. No chest pain. No palpitations. No fever. PHYSICAL EXAMINATION: Alert and oriented. Pulse 84, blood pressure 115/75, respiration 20, temperature 98.4, pulse ox 98% on room air. HEENT: Conjunctivae normal. Oral mucosa moist. NECK: No jugular venous distention. No lymph node enlargement. CARDIOVASCULAR: S1, S2, muffled. No S3, no S4, RESPIRATORY: Diminished breath sounds at the bases. Bilateral scattered rhonchi and crackles. ABDOMEN: Soft, nontender. LEGS: No edema, no swelling. NERVOUS SYSTEM: No focal motor or sensory deficits. LABS: CBC, BMP noted. Accu-Cheks 135. Calcium is 8.5. ASSESSMENT: 1. Recurrent episodes of syncope possibly secondary to cardiac syncope and prolonged sinus pauses. 2. Bradycardia. 3. Epilepsy, present on admission possibly. 4. Decreased free T4 with hypothyroidism. 5. Decreased serum cortisol with hypocortisolism. 6. Increased random blood sugar. 7. History of memory impairment. 8. 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 9. History of diabetes insipidus. 10.History of narcolepsy. 11.History of varicose veins. 12.History of sleep apnea. 13.History of depression. 14.Obesity with body mass index of 49.8. 15.FULL CODE. 16.Legal guardian. RECOMMENDATION: Continue current management and symptomatic treatment. Otherwise, PT/OT evaluation, possible ECF rehab. Continue the rest of medications. Prognosis is extremely guarded because of multiple complex medical issues. Further recommendations to follow. Follow closely with Case Management and high school social science teacher. MMODL / IJN: [id number] /
[2020-04-05] MEDS: LEVOTHYROXINE 100 MCG TAB PO SCH (05:47)
[2020-04-05 06:58] LABS: Glucose,Whole Blood 111 mg/dL (75-99)
[2020-04-05 07:06] LABS: Basophils # (A) 0.1 k/uL (0-0.2); Basophils % (A) 1 %; Eosinophils # (A) 0.3 k/uL (0-0.7); Eosinophils % (A) 4 %; HGB 12.4 gm/dL (11.4-16.0); Lymphocytes # (A) 2.5 k/uL (1.0-4.8); Lymphocytes % (A) 31 %; MCH 28.8 pg (25.0-35.0); MCHC 34.4 g/dL (31.0-37.0); MCV 83.6 fL (80.0-100.0); Mean Platelet Volume 7.2; Monocytes # (A) 0.3 k/uL (0-1.0); Monocytes % (A) 4 %; Neutrophils # (A) 4.7 k/uL (1.3-7.7); Neutrophils % (A) 60 %; Platelet Count 189 k/uL (150-450); RBC 4.31 m/uL (3.80-5.40); RDW 13.6 % (11.5-15.5); WBC 7.9 k/uL (3.8-10.6)
[2020-04-05] MEDS: MELOXICAM 7.5 MG TAB PO SCH (07:20)
[2020-04-05] MEDS: HYDROCORTISONE 10 MG TAB PO SCH ×2 (07:20→16:05)
[2020-04-05] MEDS: metFORMIN 500 MG TAB PO SCH ×2 (07:21→17:26)
[2020-04-05] MEDS: OXYBUTYNIN 15 MG TAB.ER.24 PO SCH (07:21)
[2020-04-05] MEDS: LACOSAMIDE 50 MG TABLET PO SCH ×2 (07:21→22:20)
[2020-04-05] MEDS: DESMOPRESSIN 0.2 MG TAB PO SCH ×2 (07:21→22:21)
[2020-04-05] MEDS: FUROSEMIDE 20 MG TAB PO SCH (07:21)
[2020-04-05] MEDS: POTASSIUM CHLORIDE ER 10 MEQ TAB.ER.PRT PO SCH (07:21)
[2020-04-05] MEDS: PRAVASTATIN SODIUM 20 MG TAB PO SCH (07:21)
[2020-04-05] MEDS: MULTIVITAMINS, THERA 1 EACH TAB PO SCH (07:22)
[2020-04-05] MEDS: LORATADINE 10 MG TAB PO SCH (07:22)
[2020-04-05] MEDS: SERTRALINE 100 MG TAB PO SCH (07:22)
[2020-04-05] MEDS: NEOMYCIN-BACITRACIN-POLY OINT 14 GM TUBE TOPICAL SCH ×2 (07:22→22:21)
[2020-04-05] MEDS: NON FORMULARY DRUG (Lisdexamfetamine Dimesylate [Vyvanse] 50 MG Capsule) PO SCH (07:30)
[2020-04-05] MEDS: NON FORMULARY DRUG (Mirabegron [Myrbetriq] 50 MG Tab.Er.24h) PO SCH (07:30)
[2020-04-05 09:51] LABS: African American GFR (CKD) 136.9 (60.0-200.0); Anion Gap 4.9 mmol/L (4.00-12.00); BUN/Creat Ratio 33.33 Ratio (12.00-20.00); Calcium 8.9 mg/dL (8.7-10.3); Carbon Dioxide 30.1 mmol/L (21.6-31.8); Non-African American GFR(CKD) 118.1 (60.0-200.0)
[2020-04-05 11:11] LABS: Glucose,Whole Blood 119 mg/dL (75-99)
[2020-04-05] MEDS: HYOSCYAMINE SULFATE 0.375 MG TAB.ER.12H PO SCH ×2 (11:29→23:00)
[2020-04-05 17:00] LABS: Glucose,Whole Blood 140 mg/dL (75-99)
--- NOTE | 2020-04-05 18:47 | PN ---
PROGRESS NOTE DATE OF SERVICE: 04/05/2020 This 34-year-old woman who was admitted with recurrent episodes of syncope as well as cardiac syncope, still had some sinus pauses on EKG. No chest pain. No palpitations. No fever. Medications adjusted and the patient is also being started on empiric steroids also. PHYSICAL EXAMINATION: Alert and oriented x3. Pulse 64. Blood pressure 108/60. Respirations 16, temperature 97.2, pulse ox 94% on room air. HEENT: Conjunctivae normal. NECK: No JVD. CARDIOVASCULAR: S1, S2. RESPIRATORY SYSTEM: Breath sounds diminished at the bases. No rhonchi. No crackles. ABDOMEN: Soft, nontender. LEGS are no edema. No swelling. NERVOUS SYSTEM: No focal deficits. LABORATORY DATA: CBC and BMP noted. Glucose is 111. ASSESSMENT: 1. Recurrent episodes of syncope possibly secondary to cardiac syncope and prolonged sinus pauses. 2. Bradycardia. 3. Epilepsy, present on admission, possibly on empiric antiepileptic medications. 4. Decreased free T4 with hypothyroidism. 5. Decreased serum cortisol with hypocortisolism. 6. History of increased random blood sugar. 7. History of memory impairment. 8. 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 9. History of diabetes insipidus. 10.History of narcolepsy. 11.History of varicose veins. 12.History of sleep apnea. 13.History of depression. 14.Obesity with body mass index of 49.8. 15.FULL CODE. 16.Legal guardian request. RECOMMENDATIONS AND DISCUSSION: Continue current medications, continue to monitor. Symptomatic treatment. Otherwise at this time I recommend PT/OT evaluation, possible ECF rehab and Cardiology to evaluate sinus pauses and recommend close followup. Further recommendations to follow. MMODL / IJN: [id number] /
[2020-04-05 20:52] LABS: Glucose,Whole Blood 103 mg/dL (75-99)
[2020-04-06] MEDS: LEVOTHYROXINE 100 MCG TAB PO SCH (05:55)
[2020-04-06 06:47] LABS: Glucose,Whole Blood 105 mg/dL (75-99)
[2020-04-06] MEDS: LORATADINE 10 MG TAB PO SCH (07:32)
[2020-04-06] MEDS: PRAVASTATIN SODIUM 20 MG TAB PO SCH (07:32)
[2020-04-06] MEDS: metFORMIN 500 MG TAB PO SCH (07:33)
[2020-04-06] MEDS: POTASSIUM CHLORIDE ER 10 MEQ TAB.ER.PRT PO SCH (07:33)
[2020-04-06] MEDS: SERTRALINE 100 MG TAB PO SCH (07:33)
[2020-04-06] MEDS: HYDROCORTISONE 10 MG TAB PO SCH ×2 (07:33→15:06)
[2020-04-06] MEDS: MULTIVITAMINS, THERA 1 EACH TAB PO SCH (07:34)
[2020-04-06] MEDS: MELOXICAM 7.5 MG TAB PO SCH (07:34)
[2020-04-06] MEDS: DESMOPRESSIN 0.2 MG TAB PO SCH (07:34)
[2020-04-06] MEDS: FUROSEMIDE 20 MG TAB PO SCH (07:34)
[2020-04-06] MEDS: LACOSAMIDE 50 MG TABLET PO SCH (07:34)
[2020-04-06] MEDS: OXYBUTYNIN 15 MG TAB.ER.24 PO SCH (07:34)
[2020-04-06] MEDS: NON FORMULARY DRUG (Mirabegron [Myrbetriq] 50 MG Tab.Er.24h) PO SCH (07:35)
[2020-04-06] MEDS: NON FORMULARY DRUG (Lisdexamfetamine Dimesylate [Vyvanse] 50 MG Capsule) PO SCH (07:35)
[2020-04-06] MEDS: NEOMYCIN-BACITRACIN-POLY OINT 14 GM TUBE TOPICAL SCH (07:39)
[2020-04-06 09:19] VITALS: RESP 18
[2020-04-06 11:26] LABS: Glucose,Whole Blood 107 mg/dL (75-99)
[2020-04-06] MEDS: HYOSCYAMINE SULFATE 0.375 MG TAB.ER.12H PO SCH (12:13)
--- NOTE | 2020-04-06 12:44 | PN ---
PROGRESS NOTE Mrs. Piper is a 34-year-old female who presented with long pause and dizziness and syncope that was thought to be related to a seizure activity. She had a history of obstructive sleep apnea, but has not been using the CPAP because of narcolepsy. Last night, she had a 2 second pause. She was asymptomatic that occurred while she was sleeping. She is feeling well today. Her breathing is stable. She denies any dizziness or palpitation. She denies any nausea. She continued to be on Lasix 20 mg daily, hydrocortisone, , Synthroid, metformin, pravastatin, and sertraline. PHYSICAL EXAMINATION: Blood pressure running in the 100 with a heart rate in the 70s. LUNGS: Clear. HEART: Regular rate and rhythm, S1, S2. No S3. No rub. ABDOMEN: Obese, nontender. EXTREMITIES: No significant edema. IMPRESSION: 1. Sinus pause at night, most likely related to the obstructive sleep apnea. 2. Obstructive sleep apnea, not treated. 3. Probable seizure. 4. History of benign right temporal brain tumor, status post resection. 5. History of narcolepsy. 6. History of adrenal insufficiency. RECOMMENDATION: From the cardiac standpoint, will continue present therapy, increase her level of activity. She should be able to be discharged home soon. She will need to follow up with Dr. Schmitz to see if further evaluation of her bradycardia is needed. I would recommend to be re-evaluated for sleep apnea. MMODL / IJN: [id number] /
--- NOTE | 2020-04-06 14:20 | P.DS ---
Providers Date of admission: 04/01/20 13:55 Expected date of discharge: 04/06/20 Attending physician: Jacques García Consults: 03/31/20 18:07 Consult Physician Routine Consulting Provider: Duncan Slade Consult Reason/Comments: FALL SYNCOPE Do you want consulting provider notified?: Yes 04/06/20 08:59 Consult Physician Routine Consulting Provider: Vikram Ch Consult Reason/Comments: pauses Do you want consulting provider notified?: Already Contacted Primary care physician: Ronan Gant [facility] Course: Final diagnosis Recurrent episodes of syncope possible secondary to cardiac syncope and prolonged sinus pauses Bradycardia Epilepsy, present on admission, possibly on empiric Antiepileptic medications Decreased free T4 with hypothyroidism Decreased serum cortisol with hypocortisalism History of increased random blood sugar History of memory impairment History of inferior temporal lobe tumor removal, 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 Patient will follow-up with Dr. Gant in the outpatient setting upon discharge. Patient also instructed to follow-up with neurologist along with cardiology in the outpatient setting. Total time taken is greater than 35 minutes. History of present illness This is an 34-year-old female who was recently admitted with recurrent episodes of syncope as well as cardiac syncope with some sinus pauses as noted on EKG and was being closely monitored. She was seen and evaluated by cardiology along with neurology and medication adjustments have been made. Patient will follow- up with cardiology in one week in the outpatient setting and will also follow-up with neurology in one week. Patient was also instructed to follow-up outpatient for sleep study for sleep apnea. Patient was started on Vimpat by neurology and will continue at this time. Medication adjustments made to her thyroid medications and will need follow-up in 4-6 weeks for repeat labs. Patient needs continued PT/OT therapy in the outpatient setting and will be going to [facility] home today. Currently no reports of chest pain, shortness of breath, or palpitations. Patient is afebrile. No reports of nausea or vomiting and patient is tolerating diet. Patient will be going to the [facility] home today. On exam vital signs are stable. Temp is 98.2F, pulse is 79, respirations are 17, blood pressure is 101/63, oxygen saturation is 92% on room air. Cardio S1, S2 are muffled. Respiratory system shows diminished breath sounds at the bases with no wheezing or rhonchi noted. Abdomen is soft and nontender. Nervous system shows diffuse weakness. Please refer to medication reconciliation sheet for a list of medications. Patient Condition at Discharge: Stable Plan - Discharge Summary Discharge Rx Participant: No New Discharge Prescriptions: New Hydrocortisone [Cortef] 15 mg PO DAILY 30 Days #45 tab Hydrocortisone [Cortef] 7.5 mg PO DAILY@1600 30 Days #30 tab Hyoscyamine Sulfate [Levbid] 0.375 mg PO Q12H 30 Days #60 tab.er.12h Levothyroxine Sodium [Synthroid] 200 mcg PO DAILY@0630 30 Days #60 tab Lacosamide [Vimpat] 50 mg PO BID #12 tablet Continue Furosemide 20 mg PO DAILY Multivitamins, Thera [Multivitamin (formulary)] 1 tab PO DAILY Pravastatin Sodium [Pravachol] 20 mg PO DAILY Loratadine 10 mg PO DAILY Lisdexamfetamine Dimesylate [Vyvanse] 50 mg PO DAILY Sertraline [Zoloft] 200 mg PO DAILY Desmopressin Acetate 0.1 mg PO BID Potassium Chloride 10 meq PO DAILY metFORMIN HCL [metFORMIN HCL ER] 500 mg PO BID Oxybutynin Chloride [Oxybutynin Chloride ER] 15 mg PO DAILY Mirabegron [Myrbetriq] 50 mg PO DAILY Meloxicam 15 mg PO DAILY Discontinued Hydrocortisone 10 mg PO DAILY Levothyroxine Sodium [Synthroid] 150 mcg PO DAILY Hydrocortisone 5 mg PO DAILY@1600 Discharge Medication List Furosemide 20 mg PO DAILY 02/06/14 [History] Multivitamins, Thera [Multivitamin (formulary)] 1 tab PO DAILY 02/06/14 [History] Desmopressin Acetate 0.1 mg PO BID 03/31/20 [History] Lisdexamfetamine Dimesylate [Vyvanse] 50 mg PO DAILY 03/31/20 [History] Loratadine 10 mg PO DAILY 03/31/20 [History] Meloxicam 15 mg PO DAILY 03/31/20 [History] Mirabegron [Myrbetriq] 50 mg PO DAILY 03/31/20 [History] Oxybutynin Chloride [Oxybutynin Chloride ER] 15 mg PO DAILY 03/31/20 [History] Potassium Chloride 10 meq PO DAILY 03/31/20 [History] Pravastatin Sodium [Pravachol] 20 mg PO DAILY 03/31/20 [History] Sertraline [Zoloft] 200 mg PO DAILY 03/31/20 [History] metFORMIN HCL [metFORMIN HCL ER] 500 mg PO BID 03/31/20 [History] Hydrocortisone [Cortef] 7.5 mg PO DAILY@1600 30 Days #30 tab 04/03/20 [Rx] Hydrocortisone [Cortef] 15 mg PO DAILY 30 Days #45 tab 04/03/20 [Rx] Hyoscyamine Sulfate [Levbid] 0.375 mg PO Q12H 30 Days #60 tab.er.12h 04/03/20 [Rx] Lacosamide [Vimpat] 50 mg PO BID #12 tablet 04/03/20 [Rx] Levothyroxine Sodium [Synthroid] 200 mcg PO DAILY@0630 30 Days #60 tab 04/03/20 [Rx] Follow up Appointment(s)/Referral(s): Aditya Schmitz MD [STAFF PHYSICIAN] - 1 Week (Office will be in contact up discharge with an appointment date and time) Ronan Gant MD [Primary Care Provider] - 1-2 days Steph Frank MD [REFERRING] - 1 Week Patient Instructions/Handouts: Syncope (DC) Activity/Diet/Wound Care/Special Instructions: Patient going to [facility] Covid 19 testing was negative Activity as tolerated Follow-up with primary care provider upon discharge Recommended sleep study in the outpatient setting Follow-up with neurology in one week Follow-up with cardiology in the outpatient setting Medications as prescribed Continue current diet Discharge Disposition: TRANSFER TO SNF/ECF
[2020-04-06 15:13] VITALS: BP 115/74; PULSE 77; TEMP 98.1
== END 2020-04-06 16:00 | DRG 101 ==
LOC: EC 14:52 → 1SOBS 16:25 → 3SCARD 21:18 → OBSVTOIN 04-01 13:55 → EEVIPCON 04-01 13:55 → 4SSUR 04-03 15:39
PROVIDERS: ADMIT Hospitalist; ATTEND Hospitalist
DX: G40.909 Epilepsy, unspecified, not intractable, without status epilepticus (principal); E27.40 Unspecified adrenocortical insufficiency; Z68.42 Body mass index [BMI] 45.0-49.9, adult; F90.9 Attention-deficit hyperactivity disorder, unspecified type; E66.9 Obesity, unspecified; E11.9 Type 2 diabetes mellitus without complications; F32.9 Major depressive disorder, single episode, unspecified; I83.90 Asymptomatic varicose veins of unspecified lower extremity; Z20.828 Contact with and (suspected) exposure to other viral communicable diseases; E03.9 Hypothyroidism, unspecified; G47.33 Obstructive sleep apnea (adult) (pediatric); Z79.84 Long term (current) use of oral hypoglycemic drugs; Z79.1 Long term (current) use of non-steroidal anti-inflammatories (NSAID); Z79.890 Hormone replacement therapy; Z79.899 Other long term (current) drug therapy; Z83.3 Family history of diabetes mellitus
CPT/HCPCS: 36415; 70450; 80048; 80053; 80306; 82140; 82533; 82607; 82746; 83735; 84439; 84443; 84481; 84484; 84703; 85025; 85610; 85730; 87077; 87086; 87186; 87635; 93005; 93306; 95816; 96365; 96375; 99285

== ENCOUNTER 2022-01-26 15:08 | Observation (INO) | payer MEDICARE, OTHER ==
[2022-01-26] MEDS ORDERED: SODIUM CHLORIDE 0.9% 1,000 ML IV ONE (15:29)
[2022-01-26] MEDS: SODIUM CHLORIDE 0.9% 1,000 ML IV SCH ×2 (15:31→22:07)
[2022-01-26 15:47] LABS: Albumin 3.9 g/dL (3.5-5.0); Calcium 8.5 mg/dL (8.4-10.2); Potassium 4.2 mmol/L (3.5-5.1); Total Protein 6.8 g/dL (6.3-8.2)
[2022-01-26] MEDS ORDERED: NALOXONE 0.4 MG/ML 1 ML VIAL IV PRN (16:21)
--- NOTE | 2022-01-26 16:24 | ED ---
General Adult HPI - General Chief complaint: Recheck/Abnormal Lab/Rx Stated complaint: UTI, sepsis Time Seen by Provider: 01/26/22 15:16 Source: patient, RN notes reviewed, old records reviewed Mode of arrival: EMS - History of Present Illness Initial comments: 36-year-old who was transferred from outside hospital for UTI sepsis. Patient had been given antibiotics as well as fluid bolus prior to transfer. She is from a skilled nursing. She had presented initially with dizziness and lightheadedness. She had previous history of brain surgery. CT was performed at this institution showing no acute abnormality. She had a urinalysis suggestive of UTI with nitrite-positive urine and urinary symptoms. This was thought to be the source of her infection and likely her symptoms. Additionally she was noted to have some acute kidney injury without baseline, creatinine of 1.2. She was sent to this institution for admission for IV fluids and IV antibiotics. Patient is feeling better at the time my evaluation, headache is improved. - Related Data Home Medications Medication Instructions Recorded Confirmed Furosemide 20 mg PO DAILY 02/06/14 03/31/20 Multivitamins, Thera [Multivitamin 1 tab PO DAILY 02/06/14 03/31/20 (formulary)] Desmopressin Acetate 0.1 mg PO BID 03/31/20 03/31/20 Lisdexamfetamine Dimesylate 50 mg PO DAILY 03/31/20 03/31/20 [Vyvanse] Loratadine 10 mg PO DAILY 03/31/20 03/31/20 Meloxicam 15 mg PO DAILY 03/31/20 03/31/20 Mirabegron [Myrbetriq] 50 mg PO DAILY 03/31/20 03/31/20 Oxybutynin Chloride [Oxybutynin 15 mg PO DAILY 03/31/20 03/31/20 Chloride ER] Potassium Chloride [Potassium 10 meq PO DAILY 03/31/20 03/31/20 Chloride ER] Pravastatin Sodium [Pravachol] 20 mg PO DAILY 03/31/20 03/31/20 Sertraline [Zoloft] 200 mg PO DAILY 03/31/20 03/31/20 metFORMIN HCL [metFORMIN HCL ER] 500 mg PO BID 03/31/20 03/31/20 Previous Rx's Medication Instructions Recorded Hydrocortisone [Cortef] 7.5 mg PO DAILY@1600 30 Days #30 04/03/20 tab Hydrocortisone [Cortef] 15 mg PO DAILY 30 Days #45 tab 04/03/20 Hyoscyamine Sulfate [Levbid] 0.375 mg PO Q12H 30 Days #60 04/03/20 tab.er.12h Lacosamide [Vimpat] 50 mg PO BID #12 tablet 04/03/20 Levothyroxine Sodium [Synthroid] 200 mcg PO DAILY@0630 30 Days #60 04/03/20 tab Allergies Allergy/AdvReac Type Severity Reaction Status Date / Time No Known Allergies Allergy Verified 03/31/20 17:33 Review of Systems ROS Statement: Those systems with pertinent positive or pertinent negative responses have been documented in the HPI. ROS Other: All systems not noted in ROS Statement are negative. Past Medical History Past Medical History: Memory Impairment, Sleep Apnea/CPAP/BIPAP Additional Past Medical History / Comment(s): narcolepsy, diabetes incipedus, varicos veins, History of Any Multi-Drug Resistant Organisms: None Reported Additional Past Surgical History / Comment(s): Brain Tumor removal x2 1998 and 2000 Past Anesthesia/Blood Transfusion Reactions: No Reported Reaction Past Psychological History: Depression Smoking Status: Never smoker Past Alcohol Use History: None Reported, Rare Past Drug Use History: None Reported - Past Family History Mother Family Medical History: Diabetes Mellitus General Exam General appearance: alert, in no apparent distress Head exam: Present: atraumatic, normocephalic Eye exam: Present: normal appearance, PERRL Respiratory exam: Present: normal lung sounds bilaterally. Absent: respiratory distress, wheezes, rales Cardiovascular Exam: Present: regular rate, normal rhythm GI/Abdominal exam: Present: soft. Absent: distended, tenderness, guarding Neurological exam: Present: alert Skin exam: Present: warm, dry, intact. Absent: cyanosis, diaphoretic Course Vital Signs 01/26/22 15:10 Temperature 99.1 F Pulse Rate 82 Respiratory 18 Rate Blood Pressure 83/56 O2 Sat by Pulse 92 L Oximetry Medical Decision Making - Medical Decision Making Repeat laboratory studies will be performed including CBC, CMP, blood cultures urinalysis, lactic acid these results are pending. She'll be continued on IV fluids and IV antibiotics. I did discuss case with Dr. Gabriel who will admit. - Lab Data Result diagrams: 01/26/22 15:29 Lab Results 01/26/22 01/26/22 Range/Units 15:29 15:29 Sodium 143 (137-145) mmol/L Potassium 4.2 (3.5-5.1) mmol/L Chloride 108 H (98-107) mmol/L Carbon Dioxide 20 L (22-30) mmol/L Anion Gap 15 mmol/L BUN 24 H (7-17) mg/dL Creatinine 1.21 H (0.52-1.04) mg/dL Est GFR (CKD-EPI)AfAm 66 (>60 ml/min/1.73 sqM) Est GFR (CKD-EPI)NonAf 58 (>60 ml/min/1.73 sqM) Glucose 206 H (74-99) mg/dL Plasma Lactic Acid Сергей 1.1 (0.7-2.0) mmol/L Calcium 8.5 (8.4-10.2) mg/dL Total Bilirubin 1.0 (0.2-1.3) mg/dL AST 34 (14-36) U/L ALT 31 (4-34) U/L Alkaline Phosphatase 153 H (38-126) U/L Total Protein 6.8 (6.3-8.2) g/dL Albumin 3.9 (3.5-5.0) g/dL Disposition Clinical Impression: MICHELLE (acute kidney injury), UTI (urinary tract infection) Disposition: ADMITTED IP TO THIS HOSP Condition: Stable Is patient prescribed a controlled substance at d/c from ED?: No Referrals: Ronan Gant MD [Primary Care Provider] - 1-2 days Time of Disposition: 16:26
[2022-01-26 16:39] LABS: Basophils % (A) 0 %; Eosinophils % (A) 0 %; HCT 37.4 % (34.0-46.0); HGB 11.9 gm/dL (11.4-16.0); Lymphocytes # (A) 0.6 k/uL (1.0-4.8); Lymphocytes % (A) 4 %; MCH 28.8 pg (25.0-35.0); MCV 90.1 fL (80.0-100.0); Mean Platelet Volume 7.7; Monocytes # (A) 0.3 k/uL (0-1.0); Monocytes % (A) 2 %; Neutrophils # (A) 14.3 k/uL (1.3-7.7); Neutrophils % (A) 94 %; Platelet Count 156 k/uL (150-450); RBC 4.15 m/uL (3.80-5.40); RDW 13.3 % (11.5-15.5); WBC 15.2 k/uL (3.8-10.6)
[2022-01-26 19:04] LABS: Appearance,Urine Cloudy (Clear); Bacteria,Urine Moderate /hpf; Bilirubin,Urine Negative (Negative); Blood,Urine Small (Negative); Color,Urine Yellow; Glucose,Urine (UA) Negative (Negative); Ketones,Urine Negative (Negative); Leukocyte Esterase,Urine Large (Negative); Mucus,Urine Rare /hpf; Nitrite,Urine Positive (Negative); Protein,Urine Trace (Negative); RBC,Urine 3 /hpf (0-5); Specific Gravity,Urine 1.008 (1.001-1.035); Squamous Epithelial Cell,Urine <1 /hpf (0-4); Urobilinogen,Urine <2.0 mg/dL (<2.0); WBC,Urine >182 /hpf (0-5)
[2022-01-26] MEDS: FAMOTIDINE 20 MG/2 ML VIAL IV SCH (22:06)
[2022-01-26] MEDS: HEPARIN SODIUM,PORCINE/PF 5,000 UNIT/0.5 ML SYRINGE SQ SCH (22:06)
[2022-01-27] MEDS: LEVOTHYROXINE 75 MCG TAB PO SCH (05:33)
[2022-01-27 06:23] LABS: Basophils # (A) 0.1 k/uL (0-0.2); Basophils % (A) 0 %; Eosinophils # (A) 0.1 k/uL (0-0.7); Eosinophils % (A) 0 %; HCT 37.5 % (34.0-46.0); Hypochromasia Slight; Lymphocytes # (A) 0.8 k/uL (1.0-4.8); Lymphocytes % (A) 5 %; MCH 29.5 pg (25.0-35.0); MCHC 32.1 g/dL (31.0-37.0); MCV 91.9 fL (80.0-100.0); Mean Platelet Volume 7.7; Monocytes # (A) 0.4 k/uL (0-1.0); Monocytes % (A) 3 %; Neutrophils # (A) 13.9 k/uL (1.3-7.7); Neutrophils % (A) 91 %; Platelet Count 172 k/uL (150-450); RBC 4.08 m/uL (3.80-5.40); RDW 13.3 % (11.5-15.5); WBC 15.3 k/uL (3.8-10.6)
[2022-01-27 09:26] LABS: African American GFR (CKD) 109.2 (60.0-200.0); BUN/Creat Ratio 30.63 Ratio (12.00-20.00); Blood Urea Nitrogen 24.5 mg/dL (9.0-27.0); Calcium 8.7 mg/dL (8.7-10.3); Magnesium 2.4 mg/dL (1.5-2.4); Non-African American GFR(CKD) 94.2 (60.0-200.0); Potassium 3.7 mmol/L (3.5-5.5)
[2022-01-27] MEDS: HEPARIN SODIUM,PORCINE/PF 5,000 UNIT/0.5 ML SYRINGE SQ SCH ×2 (09:56→21:07)
[2022-01-27] MEDS: HYDROCORTISONE 10 MG TAB PO SCH ×2 (09:56→17:46)
[2022-01-27] MEDS: SERTRALINE 100 MG TAB PO SCH (09:57)
[2022-01-27] MEDS: PRAVASTATIN SODIUM 20 MG TAB PO SCH (09:57)
[2022-01-27] MEDS: SODIUM CHLORIDE 0.9% 1,000 ML IV SCH (09:57)
[2022-01-27] MEDS: FAMOTIDINE 20 MG/2 ML VIAL IV SCH ×2 (09:57→21:07)
[2022-01-27] MEDS: NON FORMULARY DRUG (Lisdexamfetamine Dimesylate [Vyvanse] 40 MG Capsule) PO SCH (09:57)
[2022-01-27] MEDS ORDERED: DEXTROSE 5% IN WATER 1,000 ML with POTASSIUM CHLORIDE 20 MEQ IV ONE (11:24)
[2022-01-27] MEDS: DESMOPRESSIN 0.2 MG TAB PO SCH ×2 (12:23→21:06)
[2022-01-27] MEDS: NON FORMULARY DRUG (Mirabegron [Myrbetriq] 50 MG Tab.Er.24h) PO SCH (12:23)
[2022-01-27] MEDS: risperiDONE 0.5 MG TAB PO SCH (21:07)
--- NOTE | 2022-01-27 22:43 | HP ---
HISTORY AND PHYSICAL CHIEF COMPLAINTS: Headache, dizziness. HISTORY OF PRESENT ILLNESS: This 36-year-old woman with a past medical history of multiple medical problems, including craniopharyngioma surgery, history of memory impairment, history of narcolepsy, and diabetes insipidus, was complaining of headache and dizziness. The patient came to [facility], was found to have renal failure as well as hyponatremia. The patient also had UTI. The patient admitted for further evaluation and treatment. There is no history of any fever, rigor or chills. PAST MEDICAL HISTORY: History of craniopharyngioma, diabetes insipidus. HOME MEDICATIONS: Reviewed include: 1. Vyvanse. 2. Risperdal. Doses reviewed. ALLERGIES: None. FAMILY HISTORY: History of diabetes mellitus type 2. SOCIAL HISTORY: No history of smoking or alcohol. REVIEW OF SYSTEMS: 14-point review of systems negative except as mentioned earlier. PHYSICAL EXAMINATION: VITAL SIGNS: Pulse is 65, blood pressure 91/61, respirations 17. HEENT: Conjunctivae normal. Vision is diminished. NECK: No jugular venous distention. CARDIOVASCULAR: S1, S2 muffled. RESPIRATIONS: Breath sounds diminished at the bases. ABDOMEN: Soft, nontender. LEGS: No edema. NERVOUS SYSTEM: Mild diffuse weakness. SKIN: No ulcer. JOINTS: No active deforming arthropathy. LABS: Reviewed. WBC 15.2. ASSESSMENT: 1. Acute urinary tract infection, present on admission. 2. Acute renal failure. 3. Diabetes insipidus history. 4. History of craniopharyngioma. 5. Multiple medical issues. RECOMMENDATION: This is a 36-year-old woman who presented with multiple medical issues, we will monitor the patient closely. Empiric antibiotics. Cultures. Repeat labs. Resume the home medications. I would also recommend Nephrology evaluation. The prognosis is guarded because of multiple complex medical issues. Further recommendations to follow. See orders for details. MMODL / IJN: [id number] /
[2022-01-28] MEDS: LEVOTHYROXINE 75 MCG TAB PO SCH (05:23)
[2022-01-28] MEDS: DESMOPRESSIN 0.2 MG TAB PO SCH ×2 (10:27→21:25)
[2022-01-28] MEDS: metFORMIN 500 MG TAB PO SCH ×2 (10:27→21:27)
[2022-01-28] MEDS: SERTRALINE 100 MG TAB PO SCH (10:28)
[2022-01-28] MEDS: PRAVASTATIN SODIUM 20 MG TAB PO SCH (10:28)
[2022-01-28] MEDS: POTASSIUM CHLORIDE ER 10 MEQ TAB.ER.PRT PO SCH (10:28)
[2022-01-28] MEDS: FAMOTIDINE 20 MG/2 ML VIAL IV SCH ×2 (10:28→21:27)
[2022-01-28] MEDS: HYDROCORTISONE 10 MG TAB PO SCH ×2 (10:28→16:24)
[2022-01-28] MEDS: NON FORMULARY DRUG (Lisdexamfetamine Dimesylate [Vyvanse] 40 MG Capsule) PO SCH (10:29)
[2022-01-28] MEDS: NON FORMULARY DRUG (Mirabegron [Myrbetriq] 50 MG Tab.Er.24h) PO SCH (10:29)
[2022-01-28] MEDS: HEPARIN SODIUM,PORCINE/PF 5,000 UNIT/0.5 ML SYRINGE SQ SCH ×2 (10:31→21:27)
[2022-01-28 10:50] LABS: Basophils # (A) 0.03 X 10*3/uL (0.00-0.10); Basophils % (A) 0.2 %; Eosinophils # (A) 0.06 X 10*3/uL (0.04-0.35); Eosinophils % (A) 0.5 %; HCT 32.5 % (37.2-46.3); HGB 10.7 g/dL (12.0-15.0); Immature Grans, Automated 2.2 %; Lymphocytes # (A) 1.69 X 10*3/uL (0.90-5.00); Lymphocytes % (A) 13.1 %; MCH 29.5 pg (27.0-32.0); MCHC 32.9 g/dL (32.0-37.0); MCV 89.5 fL (80.0-97.0); Mean Platelet Volume 10.4 fL (9.5-12.2); Monocytes # (A) 0.45 X 10*3/uL (0.20-1.00); Monocytes % (A) 3.5 %; NRBC Per 100 WBC 0 /100 WBCS (0.0-0.0); Neutrophils # (A) 10.44 X 10*3/uL (1.80-7.70); Neutrophils % (A) 80.5 %; Platelet Count 160 X 10*3/uL (140-440); RBC 3.63 X 10*6/uL (4.10-5.20); RDW 13.1 % (11.5-14.5); WBC 12.95 X 10*3/uL (4.50-10.00)
[2022-01-28 11:06] LABS: African American GFR (CKD) 83.3 (60.0-200.0); Anion Gap 12.8 mmol/L (10.00-18.00); BUN/Creat Ratio 28.2 Ratio (12.00-20.00); Blood Urea Nitrogen 28.2 mg/dL (9.0-27.0); Calcium 8.4 mg/dL (8.7-10.3); Carbon Dioxide 23.2 mmol/L (20.0-27.5); Non-African American GFR(CKD) 71.9 (60.0-200.0); Potassium 3.9 mmol/L (3.5-5.5)
--- NOTE | 2022-01-28 12:06 | P.CNNES ---
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, seizure, ADHD, memory impairment, narcolepsy, hypothyroidism, diabetes insipidus, came to the hospital from [facility] by ambulance 01/26/2022 at 3:08 PM. EMS flow sheet not available in the chart. Vital signs on arrival blood pressure 83/56, which went up to 120/81. Pulse 82 temperature 99.1. Blood test shows WBC 15.2 hemoglobin 11.9, platelets are 156. Electrolytes are normal, BUN 24, creatinine 1.21. Creatinine has improved to 0.8. Hepatic panel is normal. UA shows small amount of blood, positive nitrite, large amount of leukocyte esterase, more than 182 WBC, many WBC clumps. During her blood cultures so far negative. Patient initially presented to [facility] because of a few days (almost a week) history of dizziness and headache. Patient states that for last several days she has been having headaches, pointing to the right parietal region, and it last about 10-20 minutes, sometimes longer up to 30 minutes. She rates her headache 6-7/10, associated with photophobia, phonophobia, nausea but no vomiting. The headaches are occurring from 9 to up to 1 time a day. Once it happens, she lay still, and takes Tylenol until it goes away. Patient states that in the last several days she has been having dizzy spells as well. It happens every time that she stands up, she gets dizzy. She could hardly stand up. She needed help, and staff at the adult foster care were not happy to help her, as they felt that they should not be helping her. When she opens her eyes standing up, everything is spinning. Patient states that she would be walking, and gets dizzy like "wall", has to stop and reconnect and then starts walking, but then can happen again. Patient was telling me that headaches are occurring about 0-1 time a day but dizzy spells were occurring every time she was standing up. I asked if there was connection between the headache and dizzy spells, she said "yes", because the more she is dizzy, the headache gets worse and that the headache gets worse, the more she is dizzy. Patient states that as soon as she stands up, it takes him. If she turns head to fast, she could get dizzy, but not typically when she is laying in the bed, is not dizzy, and neither when she rolls over in the bed, is not dizzy. Patient is not dizzy when she is sitting or laying down. She has never passed out, no loss of consciousness. No loss of control of urine or any seizure-like activity. She is always aware of the surroundings. On asking about tinnitus, states "not very often". Denies hearing loss. Patient states that at the time she was diagnosed with brain tumor, she was having a lot of headaches. Once the tumor was removed, the headaches were almost gone, not occurring no more than twice a year, and she would lay down and take Tylenol and the headache would go away. She has sometimes dizzy spells, but nothing like this happening every time. Records from [facility] revealed CT head from 01/26/2022 showed no acute intracranial process. Postsurgical changes consistent with prior right frontal craniotomy with underlying resection cavity in the inferior right frontal lobe, possibly extending to the sella and suprasellar cistern. Prominent CSF within the sella and suprasellar cistern which could be postsurgical, related to empty sella turcica, or possibly arachnoid cyst. Recommend correlation with prior imaging or consider further evaluation with dedicated MRI. CT head from 03/31/2020 also showed similar abnormality hypodensity in the inferior right temporal lobe 3 x 1 cm consistent with encephalomalacia that is unchanged compared to the exam this morning. No acute intracranial abnormality. I personally reviewed CT head, agree with the findings. Patient's vitals showed significantly low blood pressure 80/43, 85/52 in the last 05/08/2001/59 at [facility]. Patient was diagnosed with acute UTI with sepsis. Patient was seen by Dr. Duncan Slade in consultation on 04/03/2020 for recurrent episodes of loss of consciousness with urinary incontinence.. Patient had an EEG on 04/01/2020, which was abnormal routine EEG. The background slowing consistent with mild to moderate encephalopathy of nonspecific etiology. The focal slowing noted above is suggestive of focal cerebral dysfunction. She does have history of right temporal mass. The breach over the frontal central region is consistent with the patient's skull defect from previous surgery. There are no epileptiform discharges or seizures seen during the study. Clinical correlation is recommended. Patient was started on Vimpat. Patient was recommended to follow-up in epilepsy monitoring unit to capture the events whether they are truly epileptic seizures. Sleep study was also recommended at that time. patient currently not taking Vimpat. Patient states that she has been in multiple adult foster halfway's, and somehow, somewhere she stopped taking it. She is not having any seizure-like episodes either. Patient's home medications include Pravachol, sertraline 100 mg, metformin, Mirabegron, meloxicam, hydrocortisone, Vyvanse, risperidone, Synthroid, Cortef. 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 One year later, she had recurrence of symptoms with headaches, short-term memory loss and depression. Her second surgery in was in [facility]. It was because of "regrowth on the scar tissue". Review of Systems Constitutional: Denies chills, Denies fever Eyes: denies blurred vision, denies pain Ears: deny: decreased hearing, ear discharge, earache, tinnitus (Not very often) Ears, nose, mouth and throat: Reports headache, Reports vertigo, Denies sore throat Cardiovascular: Denies chest pain, Denies shortness of breath Respiratory: Denies cough Gastrointestinal: Denies abdominal pain, Denies diarrhea, Denies nausea, Denies vomiting Genitourinary: Denies dysuria, Denies hematuria Musculoskeletal: Denies myalgias Integumentary: Denies pruritus, Denies rash Neurological: Reports as per HPI Psychiatric: Denies anxiety, Denies depression Endocrine: Denies fatigue Hematologic/Lymphatic: Denies easy bleeding, Denies easy bruising Allergic/Immunologic: Denies persistent infections Past Medical History Past Medical History: Memory Impairment, Sleep Apnea/CPAP/BIPAP Additional Past Medical History / Comment(s): narcolepsy, diabetes incipedus, varicos veins, History of Any Multi-Drug Resistant Organisms: None Reported Additional Past Surgical History / Comment(s): Brain Tumor removal x2 1998 and 2000 Past Anesthesia/Blood Transfusion Reactions: No Reported Reaction Past Psychological History: Depression Smoking Status: Never smoker Past Alcohol Use History: None Reported, Rare Past Drug Use History: None Reported - Past Family History Mother Family Medical History: Diabetes Mellitus Medications and Allergies Home Medications Medication Instructions Recorded Confirmed Type Desmopressin Acetate 0.1 mg PO BID 03/31/20 01/26/22 History Meloxicam 15 mg PO DAILY 03/31/20 01/26/22 History Mirabegron [Myrbetriq] 50 mg PO DAILY 03/31/20 01/26/22 History Potassium Chloride [Potassium 10 meq PO DAILY 03/31/20 01/26/22 History Chloride ER] Pravastatin Sodium [Pravachol] 20 mg PO DAILY 03/31/20 01/26/22 History Sertraline [Zoloft] 200 mg PO DAILY 03/31/20 01/26/22 History metFORMIN HCL [metFORMIN HCL ER] 500 mg PO DAILY 03/31/20 01/26/22 History Hydrocortisone [Cortef] 15 mg PO DAILY 30 Days #45 tab 04/03/20 01/26/22 Rx Hydrocortisone [Cortef] 7.5 mg PO DAILY@1600 01/26/22 01/26/22 History Levothyroxine Sodium [Synthroid] 150 mcg PO DAILY 01/26/22 01/26/22 History Lisdexamfetamine Dimesylate 40 mg PO DAILY 01/26/22 01/26/22 History [Vyvanse] risperiDONE [RisperDAL] 0.5 mg PO HS 01/26/22 01/26/22 History Allergies Allergy/AdvReac Type Severity Reaction Status Date / Time No Known Allergies Allergy Verified 01/26/22 16:54 Physical Examination - Vital Signs Vital Signs: Vital Signs Temp Pulse Resp BP BP Pulse Ox 01/28/22 07:00 97.7 F 75 20 126/89 98 01/28/22 02:57 97.7 F 68 18 119/77 95 01/27/22 18:43 97.5 F L 64 16 93/65 99 01/27/22 14:37 98.3 F 62 12 92/60 98 01/27/22 11:55 95.0 F L Intake and Output 01/27/22 01/28/22 01/28/22 22:59 06:59 14:59 Other: Voiding Method Toilet # Voids 1 1 Patient is a young female, very pleasant, in no acute distress. Patient is very frequently yawning, which she states she always does. Patient is alert awake oriented to time place and person. Speech and language functions are normal. Patient can name and repeat very well. No aphasia or dysarthria. Attention, concentration and fund of knowledge is adequate. On cranial nerve examination, pupils are equal, round and reacting to light, visual way are full on confrontation, with no neglect on double simultaneous stimulation. Extraocular muscles are intact with no nystagmus. Face is symmetric, tongue protrudes to the midline. Palatal elevation and sensation normal, hearing and shoulder shrug normal, facial sensation normal. On muscle strength testing, there is no pronator drift and the strength is normal in arms and legs distally and proximally. Deep tendon reflexes are symmetric biceps 1+, brachioradialis 1+, knees 1+, ankles 1+ and plantars downgoing bilaterally. Sensory to touch is equal with no neglect on double simultaneous stimulation. Cerebellar function showed no ataxia for [id number] testing. No dysdiadochokinesia. No ataxia for [id number] testing on either side. Tone and bulk of muscles normal. Gait: Patient was able to stand up, and was not feeling dizzy, and states standing for good 1 minute. She later went to the bathroom holding onto the pole, and was not dizzy. On general examination, there is no carotid bruit or murmur, S1-S2 audible. Chest is clear on consultation. Abdomen is soft nontender. No organomegaly, bowel sounds present. Peripheral pulses are present. No edema. Results - Laboratory Findings CBC and BMP: 01/28/22 07:09 01/28/22 07:09 Abnormal Lab Findings: Abnormal Labs 01/26/22 01/26/22 01/26/22 15:29 15:29 18:03 WBC 15.2 H Neutrophils # 14.3 H Lymphocytes # 0.6 L Sodium Chloride 108 H Carbon Dioxide 20 L BUN 24 H Creatinine 1.21 H BUN/Creatinine Ratio Glucose 206 H Alkaline Phosphatase 153 H Urine Appearance Cloudy H Urine Protein Trace H Urine Blood Small H Urine Nitrite Positive H Ur Leukocyte Esterase Large H Urine WBC >182 H Urine WBC Clumps Many H Urine Bacteria Moderate H Urine Mucus Rare H 01/27/22 01/27/22 05:47 05:47 WBC 15.3 H Neutrophils # 13.9 H Lymphocytes # 0.8 L Sodium 147 H Chloride 112 H Carbon Dioxide BUN Creatinine BUN/Creatinine Ratio 30.63 H Glucose 201 H Alkaline Phosphatase Urine Appearance Urine Protein Urine Blood Urine Nitrite Ur Leukocyte Esterase Urine WBC Urine WBC Clumps Urine Bacteria Urine Mucus Assessment and Plan Assessment: * New onset headaches, and vertigo, possibly related to labyrinthine dy sfunction, perhaps related to UTI. * Acute UTI * History of right temporal tumor status post resection in 1998 and then again in . * Morbid obesity * ADHD * Hypothyroidism * Hyperlipidemia * Depression Plan: * Patient's dizzy spells and headaches are possibly related to acute UTI. Patient has been started on Rocephin. Her dizziness is much improved. Patient stood up in front of me, and did not feel dizzy. * Her computed tomography scan of head is stable. No change from last computed tomography scan from 2019. * Check orthostatics. * B12, folate, TSH. * No other neurological workup indicated. * Thank you for the consult.
--- NOTE | 2022-01-28 12:36 | P.NPCON ---
History of Present Illness - Reason for Consult hypernatremia - History of Present Illness Patient is a 36-year-old female with history of diabetes insipidus diagnosed about 5-6 years ago. Patient has a history of craniopharyngioma status post surgery in 1998 and 2000. Patient states she used to follow with Dr. Valdivia but has not seen an hot pond operator for a few years now. Patient is admitted to the hospital with a history of dizziness and lightheadedness. She was actually transferred from an outside facility due to underlying UTI. Patient lives in an adult Foster home. Patient is maintained on DDAVP 0.1 mg by mouth twice a day. Serum sodium was 147 yesterday and it is at 144 today. Serum creatinine was 1.2 and decreased to 0.8 mg/dL. Currently not on any IV fluids. Review of Systems As per HPI, other systems negative Past Medical History Past Medical History: Memory Impairment, Sleep Apnea/CPAP/BIPAP Additional Past Medical History / Comment(s): narcolepsy, diabetes incipedus, varicos veins, History of Any Multi-Drug Resistant Organisms: None Reported Additional Past Surgical History / Comment(s): Brain Tumor removal x2 1998 and 2000 Past Anesthesia/Blood Transfusion Reactions: No Reported Reaction Past Psychological History: Depression Smoking Status: Never smoker Past Alcohol Use History: None Reported, Rare Past Drug Use History: None Reported - Past Family History Mother Family Medical History: Diabetes Mellitus Medications and Allergies Home Medications Medication Instructions Recorded Confirmed Type Desmopressin Acetate 0.1 mg PO BID 03/31/20 01/26/22 History Meloxicam 15 mg PO DAILY 03/31/20 01/26/22 History Mirabegron [Myrbetriq] 50 mg PO DAILY 03/31/20 01/26/22 History Potassium Chloride [Potassium 10 meq PO DAILY 03/31/20 01/26/22 History Chloride ER] Pravastatin Sodium [Pravachol] 20 mg PO DAILY 03/31/20 01/26/22 History Sertraline [Zoloft] 200 mg PO DAILY 03/31/20 01/26/22 History metFORMIN HCL [metFORMIN HCL ER] 500 mg PO DAILY 03/31/20 01/26/22 History Hydrocortisone [Cortef] 15 mg PO DAILY 30 Days #45 tab 04/03/20 01/26/22 Rx Hydrocortisone [Cortef] 7.5 mg PO DAILY@1600 01/26/22 01/26/22 History Levothyroxine Sodium [Synthroid] 150 mcg PO DAILY 01/26/22 01/26/22 History Lisdexamfetamine Dimesylate 40 mg PO DAILY 01/26/22 01/26/22 History [Vyvanse] risperiDONE [RisperDAL] 0.5 mg PO HS 01/26/22 01/26/22 History Allergies Allergy/AdvReac Type Severity Reaction Status Date / Time No Known Allergies Allergy Verified 01/26/22 16:54 Physical Exam Vitals: Vital Signs Temp Pulse Resp BP BP Pulse Ox 01/28/22 07:00 97.7 F 75 20 126/89 98 01/28/22 02:57 97.7 F 68 18 119/77 95 01/27/22 18:43 97.5 F L 64 16 93/65 99 01/27/22 14:37 98.3 F 62 12 92/60 98 Intake and Output 01/27/22 01/28/22 01/28/22 22:59 06:59 14:59 Other: Voiding Method Toilet # Voids 1 1 Patient is awake, comfortable, not in any acute distress. Alert oriented 3 Examination of the heart S1 and S2 Examination of the lungs bilateral breath sounds are heard Abdomen is soft nontender Examination of the lower extremities shows no evidence of edema [employer] exam grossly intact Results - Lab Results Most recent lab results Calcium 8.4 mg/dL (8.7-10.3) L 01/28/22 07:09 Magnesium 2.4 mg/dL (1.5-2.4) 01/27/22 05:47 01/28/22 07:09 01/28/22 07:09 Assessment and Plan Assessment: 1. Hyponatremia associated with underlying diabetes insipidus. Currently improved. Patient is maintained on DDAVP which I will continue current dose for now. 2. History of craniopharyngioma status post surgery 1998 and 2000 currently maintained on Cortef and DDAVP for hypopituitarism. Currently not seeing an hot pond operator 3. UTI, culture is pending, maintained on antibiotics 4. Acute kidney injury mostly prerenal currently improved Plan: Continue with DDAVP at current dose Continue antibiotics Follow-up on urine cultures Add IV fluids if patient is not being discharged. Otherwise she is advised to maintain good oral intake. Patient is strongly encouraged to follow-up with endocrinology post discharge. She is given the names of Dr. Guzman and Dr. Deb Arzate Thank you for the consultation. We'll continue to follow the patient with you during her hospitalization
[2022-01-28] MEDS: SODIUM CHLORIDE 0.45% 1,000 ML IV SCH (16:32)
[2022-01-28] MEDS: risperiDONE 0.5 MG TAB PO SCH (21:26)
[2022-01-29 02:56] VITALS: TEMP 98.5
[2022-01-29] MEDS: SODIUM CHLORIDE 0.45% 1,000 ML IV SCH (04:55)
[2022-01-29] MEDS: LEVOTHYROXINE 75 MCG TAB PO SCH (06:15)
[2022-01-29 07:45] VITALS: BP 126/87; PULSE 68; RESP 17
[2022-01-29] MEDS: NON FORMULARY DRUG (Mirabegron [Myrbetriq] 50 MG Tab.Er.24h) PO SCH (09:20)
[2022-01-29] MEDS: NON FORMULARY DRUG (Lisdexamfetamine Dimesylate [Vyvanse] 40 MG Capsule) PO SCH (09:20)
[2022-01-29] MEDS: SERTRALINE 100 MG TAB PO SCH (09:27)
[2022-01-29] MEDS: HEPARIN SODIUM,PORCINE/PF 5,000 UNIT/0.5 ML SYRINGE SQ SCH (09:27)
[2022-01-29] MEDS: FAMOTIDINE 20 MG/2 ML VIAL IV SCH (09:27)
[2022-01-29] MEDS: POTASSIUM CHLORIDE ER 10 MEQ TAB.ER.PRT PO SCH (09:27)
[2022-01-29] MEDS: PRAVASTATIN SODIUM 20 MG TAB PO SCH (09:27)
[2022-01-29] MEDS: HYDROCORTISONE 10 MG TAB PO SCH (09:28)
[2022-01-29] MEDS: DESMOPRESSIN 0.2 MG TAB PO SCH (09:28)
[2022-01-29] MEDS: metFORMIN 500 MG TAB PO SCH (09:28)
--- NOTE | 2022-01-29 09:47 | P.PN ---
Subjective Patient is seen in follow-up for diabetes insipidus. Maintained on oral DDAVP. Also receiving half-normal saline. No labs today. Denies chest pain or shortness of breath. Oral intake has been good. Blood pressure stable. Vital signs are stable. General: Awake. No acute distress. HEENT: Head exam is unremarkable. LUNGS: Breath sounds decreased. HEART: Rate and Rhythm are regular. ABDOMEN: Soft, no distention. EXTREMITITES: No edema. Objective - Vital Signs Vital signs: Vital Signs Temp 98.5 F 01/29/22 07:00 Pulse 68 01/29/22 07:00 Resp 17 01/29/22 07:00 BP 126/87 01/29/22 07:00 Pulse Ox 97 01/29/22 07:00 FiO2 Intake & Output 01/28/22 01/29/22 01/29/22 18:59 06:59 18:59 Other: Voiding Method Toilet Toilet Diaper Diaper # Voids 1 1 - Labs CBC & Chem 7: 01/28/22 07:09 01/28/22 07:09 Labs: Abnormal Lab Results - Last 24 Hours (Table) 01/28/22 01/28/22 01/28/22 Range/Units 07:09 07:09 07:09 WBC 12.95 H (4.50-10.00) X 10*3/uL RBC 3.63 L (4.10-5.20) X 10*6/uL Hgb 10.7 L (12.0-15.0) g/dL Hct 32.5 L (37.2-46.3) % Immature Gran # 0.28 H (0.00-0.04) X 10*3/uL Neutrophils # 10.44 H (1.80-7.70) X 10*3/uL BUN 28.2 H (9.0-27.0) mg/dL BUN/Creatinine Ratio 28.20 H (12.00-20.00) Ratio Glucose 142 H (70-110) mg/dL Calcium 8.4 L (8.7-10.3) mg/dL Vitamin B12 945.0 H (200.0-944.0) pg/mL Microbiology - Last 24 Hours (Table) 01/26/22 15:29 Blood Culture - Preliminary Blood No Growth after 48 hours 01/26/22 15:29 Blood Culture - Preliminary Blood No Growth after 48 hours 01/26/22 18:03 Urine Culture - Preliminary Urine,Voided Gram Neg Bacilli Assessment and Plan Plan: Assessment: 1. Hypernatremia secondary to diabetes insipidus. Improved. 2. UTI with urine culture positive for gram-negative bacilli on antibiotics. 3. History of craniopharyngioma status post surgery maintained on Cortef and DDAVP for hypopituitarism. 4. Acute kidney injury mostly prerenal. Improved. Plan: Maintain oral DDAVP. Encourage oral intake, including free water. Check BMP today. Patient advised to follow up with endocrinology outpatient.
[2022-01-29 12:50] LABS: African American GFR (CKD) >90 (>60 ml/min/1.73 sqM); Anion Gap 13 mmol/L; Blood Urea Nitrogen 22 mg/dL (7-17); Calcium 8.1 mg/dL (8.4-10.2); Carbon Dioxide 22 mmol/L (22-30); Chloride 102 mmol/L (98-107); Glucose 141 mg/dL (74-99); Magnesium 1.6 mg/dL (1.6-2.3); Non-African American GFR(CKD) >90 (>60 ml/min/1.73 sqM); Potassium 3.8 mmol/L (3.5-5.1); Sodium 137 mmol/L (137-145)
--- NOTE | 2022-01-29 17:55 | P.PN ---
Progress Note - Text Progress Note Date: 01/28/22 Presenting complaint: Dizziness Hospital course: January 28 Patient with multiple medical problems presented with dizziness. And some headache. Stated that she was getting dizzy when she stood up. Patient is brothers abilio at the bedside. Feeling better today. Eating better. Up to the bathroom. No fever no chills. Had a bowel movement yesterday. Discussed with the patient and the family the bedside. Patient maybe had a viral syndrome. Definitely feeling better. Neurology was consulted. Patient able to transfer herself comfortably from the bed to the chair Current medications reviewed On examination: VITAL SIGNS: [97.6, 85, 18, 121/83, 100% room air] GENERAL APPEARANCE: BMI 43.5, sitting up in a chair. HEENT: Normal external appearance of nose and ear. Oral cavity normal EYES: Pupils equal. Conjunctiva normal. NECK: JVD not raised. Mass not palpable. RESPIRATORY: Respiratory effort normal. Lungs clear to auscultation. CARDIOVASCULAR: First and second sounds normal. No edema. ABDOMEN: Soft. Liver and spleen not palpable. No tenderness. No mass palpable. PSYCHIATRY: Alert and oriented x3. Mood and affect normal. INVESTIGATIONS, reviewed in the clinical context: White count 12.5 hemoglobin 10.7 platelets 160 potassium 3.9 creatinine 1.0 UA positive for nitrite leukoesterase. Assessment and plan: -Acute UTI with cystitis, likely causing dizziness from decreased oral intake IV ceftriaxone -Acute dizziness likely from dehydration from decreased oral intake IV fluids -Obstructive sleep apnea, uses CPAP -Narcolepsy -Diabetes insipidus Desmopressin -Depression vyvanase, Risperdal, Zoloft -Hyperlipidemia Pravachol Increase activity as tolerated. Care was discussed at length with the patient and the family member at the bedside. Diet was discussed. Neurology consulted. Blood pressure that was low on presentation now coming up. Total time spent about 40 minutes with over 25 minutes of discussion.
--- NOTE | 2022-01-29 17:58 | P.DS ---
Providers Date of admission: 01/26/22 16:49 Expected date of discharge: 01/29/22 Attending physician: Tony Marcelo Consults: 01/27/22 11:41 Consult Physician Routine Consulting Provider: Lili Weir Consult Reason/Comments: DI Do you want consulting provider notified?: Yes 01/28/22 09:37 Consult Physician Routine Consulting Provider: Yomi Watts Consult Reason/Comments: dizzy spells Do you want consulting provider notified?: Yes Primary care physician: Ronan Jasmine [facility] Hospital Course: Presenting complaint: Dizziness Hospital course: January 28 Patient with multiple medical problems presented with dizziness. And some headache. Stated that she was getting dizzy when she stood up. Patient is brothers fianc at the bedside. Feeling better today. Eating be tter. Up to the bathroom. No fever no chills. Had a bowel movement yesterday. Discussed with the patient and the family the bedside. Patient maybe had a viral syndrome. Definitely feeling better. Neurology was consulted. Patient able to transfer herself comfortably from the bed to the chair January 29: Feeling well. Urine culture come back as E. coli. A complete 3 days of Ceftin. Eating well. Feeling well. Patient seen by neurology. Cleared. On examination: VITAL SIGNS: 98.5, 68, 17, 06/02/1996, 97% room air GENERAL APPEARANCE: Sitting up, comfortable HEENT: Normal external appearance of nose and ear. Oral cavity normal EYES: Pupils equal. Conjunctiva normal. NECK: JVD not raised. Mass not palpable. RESPIRATORY: Respiratory effort normal. Lungs clear to auscultation. CARDIOVASCULAR: First and second sounds normal. No edema. ABDOMEN: Soft. Liver and spleen not palpable. No tenderness. No mass palpable. PSYCHIATRY: Alert and oriented x3. Mood and affect normal. INVESTIGATIONS, reviewed in the clinical context: White count 12.5 hemoglobin 10.7 platelets 160 potassium 3.9 creatinine 1.0 UA positive for nitrite leukoesterase. Urine culture: E. coli Assessment and plan: -Acute UTI with cystitis, from E. coli likely causing dizziness from decreased oral intake IV ceftriaxone. DC with 3 days of Ceftin -Acute dizziness likely from dehydration from decreased oral intake IV fluids -Obstructive sleep apnea, uses CPAP -Narcolepsy -Diabetes insipidus Desmopressin -Depression vyvanase, Risperdal, Zoloft -Hyperlipidemia Pravachol Disposition: long-term Plan - Discharge Summary Discharge Rx Participant: No New Discharge Prescriptions: New cefUROXime axetiL [Ceftin] 500 mg PO BID #6 tab Continue Pravastatin Sodium [Pravachol] 20 mg PO DAILY Sertraline [Zoloft] 200 mg PO DAILY Desmopressin Acetate 0.1 mg PO BID Potassium Chloride [Potassium Chloride ER] 10 meq PO DAILY metFORMIN HCL [metFORMIN HCL ER] 500 mg PO DAILY Mirabegron [Myrbetriq] 50 mg PO DAILY Meloxicam 15 mg PO DAILY Hydrocortisone [Cortef] 15 mg PO DAILY 30 Days #45 tab Lisdexamfetamine Dimesylate [Vyvanse] 40 mg PO DAILY risperiDONE [RisperDAL] 0.5 mg PO HS Levothyroxine Sodium [Synthroid] 150 mcg PO DAILY Hydrocortisone [Cortef] 7.5 mg PO DAILY@1600 Discharge Medication List Desmopressin Acetate 0.1 mg PO BID 03/31/20 [History] Meloxicam 15 mg PO DAILY 03/31/20 [History] Mirabegron [Myrbetriq] 50 mg PO DAILY 03/31/20 [History] Potassium Chloride [Potassium Chloride ER] 10 meq PO DAILY 03/31/20 [History] Pravastatin Sodium [Pravachol] 20 mg PO DAILY 03/31/20 [History] Sertraline [Zoloft] 200 mg PO DAILY 03/31/20 [History] metFORMIN HCL [metFORMIN HCL ER] 500 mg PO DAILY 03/31/20 [History] Hydrocortisone [Cortef] 15 mg PO DAILY 30 Days #45 tab 04/03/20 [Rx] Hydrocortisone [Cortef] 7.5 mg PO DAILY@1600 01/26/22 [History] Levothyroxine Sodium [Synthroid] 150 mcg PO DAILY 01/26/22 [History] Lisdexamfetamine Dimesylate [Vyvanse] 40 mg PO DAILY 01/26/22 [History] risperiDONE [RisperDAL] 0.5 mg PO HS 01/26/22 [History] cefUROXime axetiL [Ceftin] 500 mg PO BID #6 tab 01/29/22 [Rx] Follow up Appointment(s)/Referral(s): Ronan Gant MD [Primary Care Provider] - 1-2 days Discharge Disposition: OTHER INSTITUTION NOT DEFINED
== END 2022-01-29 14:17 | disposition other institution (70) ==
LOC: EC 15:08 → 6NMEDSUR 16:49
PROVIDERS: ADMIT Hospitalist; ATTEND Hospitalist
DX: N30.90 Cystitis, unspecified without hematuria (principal); N17.9 Acute kidney failure, unspecified; E86.0 Dehydration; G47.33 Obstructive sleep apnea (adult) (pediatric); G47.419 Narcolepsy without cataplexy; F32.A Depression, unspecified; E23.2 Diabetes insipidus; F90.9 Attention-deficit hyperactivity disorder, unspecified type; E03.9 Hypothyroidism, unspecified; E78.5 Hyperlipidemia, unspecified; E66.01 Morbid (severe) obesity due to excess calories; Z68.41 Body mass index [BMI] 40.0-44.9, adult; Z79.1 Long term (current) use of non-steroidal anti-inflammatories (NSAID); Z79.84 Long term (current) use of oral hypoglycemic drugs; Z79.890 Hormone replacement therapy; Z79.899 Other long term (current) drug therapy; Z83.3 Family history of diabetes mellitus
CPT/HCPCS: 96367; 96361 ×3; 96365; 96366 ×3; 96372 ×4; 96375; 96376 ×3; 99285; 36415; 80053; 80048 ×3; 84443; 82607; 82746; 83605 ×2; 83735 ×2; 85025 ×3; 81001; 84703; 87040; 87086; 87077; 87186; G0378 ×5; J3480; J0696 ×3; J1644 ×4

== ENCOUNTER → 2023-01-26 | Outpatient (CLI) | payer MEDICARE, OTHER ==
--- NOTE | 2023-01-26 15:34 | P.SLEEP ---
History of Present Illness DATE: 01/26/2023 CONSULTATION/NEW PATIENT EVALUATION HISTORY OF PRESENT ILLNESS/SLEEP-WAKE EVALUATION: 37-year-old lady had been ev aluated in the sleep center for obstructive sleep apnea hypopnea syndrome. Patient has history of obstructive sleep apnea hypopnea syndrome, last sleep study done in 2013. Patient has difficulties with the usage of CPAP equipment and was not able to use it regularly. SLEEP SCHEDULE: Usually sleep schedule from midnight until 6 AM. FALLING ASLEEP: Usually no significant problems with falling asleep. DURING SLEEP: Patient has loud snoring and episodes of stop breathing during the sleep. Patient wakes up from sleep more than 2 times with nocturia. Positive history of restless leg symptoms No history of hypnogogical hallucinations, sleep paralysis, or cataplexy. DURING THE DAY/WAKE STATE: In the morning patient wake up tired, falling asleep during the day, has problems with memory, concentration, irritability depression. [place] sleepiness scale is significantly increased to 16. Patient may take up to 2 naps during the day. PAST MEDICAL HISTORY: Depression, hypothyroidism, low level of growth hormon, prediabetes. PAST SURGICAL HISTORY: Surgical treatment for craniopharingeoma. MEDICATIONS: Desmopressin, hydrocortisone 10 mg once a day, levothyroxine 150 g once a day, lisinopril 2.5 mg once a day, metformin 500 mg once a day, pravastatin 20 mg once a day, risperidone 1 mg once a day, sertraline 100 mg once a day, Trulicity. SOCIAL HISTORY: Negative for smoking, alcohol consumption occasional. FAMILY HISTORY: Diabetes. REVIEW OF SYSTEMS: Snoring, multiple awakenings from sleep, significant excessive daytime sleepiness. No fevers. No double vision. No recent chest pain. No shortness of breath. No abdominal pain. No bleeding episodes. No blood in urine. No seizure episodes. PHYSICAL EXAMINATION: GENERAL: A pleasant patient without any distress. VITAL SIGNS: BP 115/69, HR 70, RR 16, weight 293.8 pounds, height 5 foot 0.5 inches, body mass index 56.0. HEENT: PERRLA, EOMI. Evaluation of oropharynx showed tongue protrudes midline, low position of soft palate Mallampati 4. NECK: Supple. No JVD. Thyroid is not palpable. 17-1/4 inches in circumference. LUNGS: Clear to percussion and to auscultation. Good air exchange. No wheezing or rhonchi. HEART: S1, S2 regular. No murmurs, gallops or rubs. ABDOMEN: Soft and nontender. Bowel sounds are present. No organomegaly appreciated. Obese EXTREMITIES: No clubbing or cyanosis. KEY BED INSTALLER: Awake, alert, and oriented x3. Cranial nerves 2 to 7 intact. There is no fasciculation or atrophy noted. No focal deficits observed. ASSESSMENT: 1. Snoring, extremely low position of soft palate, multiple awakenings from sleep, significant sleepiness [place] Sleepiness Scale increased to 16, history of obstructive sleep apnea-hypopnea syndrome. Obstructive sleep apnea-hypopnea syndrome. 2. Obesity BMI 56.0. 3. History of depression. 4. Hypothyroidism. 5 history of low level of growth hormone. 6 .. PreDiabetes mellitus. 7. Status post surgical treatment for craniopharingioma. PLAN: 1. Polysomnography for evaluation of patient's breathing during sleep. 2. CPAP/BiPAP titration if sleep study confirms obstructive sleep apnea- hypopnea syndrome. 3. Preferable position during sleep on the side. 4. No driving if patient feels any sleepiness. Patient is aware of civil and criminal liability for unsafe driving. 5. Sleep hygiene with regular sleep time for at least 7.5-8 hours. 6. Watching and losing weight. Thank you very much for referring this patient for consultation. Sincerely, Narendra Stevenson MD, PhD, FAASM. Diplomat of [employer], Sleep Medicine Board by [employer]r of [employer] [facility] [place] Past Medical History Past Medical History: Memory Impairment, Sleep Apnea/CPAP/BIPAP Additional Past Medical History / Comment(s): narcolepsy, diabetes incipedus, varicos veins, History of Any Multi-Drug Resistant Organisms: None Reported Additional Past Surgical History / Comment(s): Brain Tumor removal x2 1998 and 2000 Past Anesthesia/Blood Transfusion Reactions: No Reported Reaction Past Psychological History: Depression Smoking Status: Never smoker Past Alcohol Use History: None Reported, Rare Past Drug Use History: None Reported - Past Family History Mother Family Medical History: Diabetes Mellitus Medications and Allergies Home Medications Medication Instructions Recorded Confirmed Type Desmopressin Acetate 0.1 mg PO BID 03/31/20 01/26/22 History Meloxicam 15 mg PO DAILY 03/31/20 01/26/22 History Mirabegron [Myrbetriq] 50 mg PO DAILY 03/31/20 01/26/22 History Potassium Chloride [Klor-Con M10] 10 meq PO DAILY 03/31/20 01/26/22 History Pravastatin Sodium [Pravachol] 20 mg PO DAILY 03/31/20 01/26/22 History Sertraline [Zoloft] 200 mg PO DAILY 03/31/20 01/26/22 History metFORMIN HCL [metFORMIN HCL ER] 500 mg PO DAILY 03/31/20 01/26/22 History Hydrocortisone [Cortef] 15 mg PO DAILY 30 Days #45 tab 04/03/20 01/26/22 Rx Hydrocortisone [Cortef] 7.5 mg PO DAILY@1600 01/26/22 01/26/22 History Levothyroxine Sodium [Synthroid] 150 mcg PO DAILY 01/26/22 01/26/22 History Lisdexamfetamine Dimesylate 40 mg PO DAILY 01/26/22 01/26/22 History [Vyvanse] risperiDONE [RisperDAL] 0.5 mg PO HS 01/26/22 01/26/22 History cefUROXime axetiL [Ceftin] 500 mg PO BID #6 tab 01/29/22 Rx Allergies Allergy/AdvReac Type Severity Reaction Status Date / Time No Known Allergies Allergy Verified 01/26/22 16:54 Sleep Note - Sleep Note Sleep Note: Temperature: Pulse Rate: Respiratory Rate: Blood Pressure: SpO2: Height: Weight: BMI: Neck Circumference:
== END ==
LOC: 3 N SLEEP 13:34
PROVIDERS: ATTEND Internal Medicine
DX: G47.33 Obstructive sleep apnea (adult) (pediatric) (principal); E66.9 Obesity, unspecified; F32.A Depression, unspecified; E03.9 Hypothyroidism, unspecified; E11.9 Type 2 diabetes mellitus without complications; Z98.890 Other specified postprocedural states; Z68.43 Body mass index [BMI] 50.0-59.9, adult; Z79.890 Hormone replacement therapy; Z79.84 Long term (current) use of oral hypoglycemic drugs; Z79.85 Long-term (current) use of injectable non-insulin antidiabetic drugs
CPT/HCPCS: 99211

== ENCOUNTER 2023-03-06 19:49 | Outpatient (CLI) | payer MEDICARE, OTHER ==
--- NOTE | 2023-03-08 15:26 | P.PCN ---
Description of Procedure: POLYSOMNOGRAPHY REPORT PROCEDURE(S)/DATE(S): Polysomnography 03/06/2023 CLINICAL: Patient has been seen in the sleep center for evaluation of obstructive sleep apnea-hypopnea syndrome. Please see my consultation. Sleep study has been done for evaluation of patient breathing during the sleep. PROCEDURE: The standard montage for clinical polysomnography included the electroencephalogram, the electrooculogram, the mentalis surface electromyography and Lead II cardiography. The respiratory battery consisted of measurements of nasal/buccal air flow, pressure transducer measurements from nose, thoracic and/or abdominal effort and intercostal surface electromyography. Video monitoring has been done to check for any parasomnia events. Nocturnal oxyhemoglobin saturations were obtained by finger oximetry. Step-hoyos titration with positive airway pressure was utilized to control the respiratory events, if necessary. RESULTS: During the diagnostic sleep study sleep efficiency was slightly decreased to 84.1 %. Latency to sleep onset was borderline 9.5 min. Sleep architecture showed stage NI was extremely short 0.3 %, Delta sleep was was in high range 21.4 %, REM sleep was normal 24.1 %. Respiratory channel showed 55 obstructive apneas, 1 mixed apneas, 4 central apne as, 40 hypopneas with lowest oxygen level 68%. Total apnea hypopnea index was 15.2. Heart rate was in the range between 64 and 79, average 71. EMG showed 13.1 periodic limb movements per hour with 0.3 micro-arousals per hour. IMPRESSIONS: 1. Moderate Obstructive sleep apnea hypopnea syndrome . 2. Very mild periodic limb movements have been documented. Please see other impressions from consultation PLAN: 1. The patient will have PAP titration for correction of respiratory abnormalities during the sleep. 2. Losing weight program. 3. Sleep hygiene with regular time in bed for at least 7-1/2 hours. 4. No driving if feeling sleepiness. 5. Please check iron profile with ferritin level, low level of iron may increase the risk for periodic limb movements. Thank you very much for allowing me to participate in the management of your patient. Sincerely, Narendra Stevenson MD, PhD, FAASM. Diplomat of [place], Sleep Medicine Board by [employer] Bi Technical Lead of [facility] [place]
== END 2023-03-07 07:15 | disposition home or self-care (01) ==
LOC: 3 N SLEEP 19:49
PROVIDERS: ATTEND Internal Medicine
DX: G47.33 Obstructive sleep apnea (adult) (pediatric) (principal)
CPT/HCPCS: 95810

== ENCOUNTER → 2023-08-02 | Outpatient (CLI) | payer MEDICARE, OTHER ==
[2023-08-02 17:01] VITALS: BP 109/72; PULSE 76; RESP 16; TEMP 98.3; BMI 54.8
--- NOTE | 2023-08-02 17:19 | P.HPBAR ---
Bariatric H&P - History & Physicial H&P Date: 08/02/23 History & Physicial: Visit/CC: Initial Patient initial contact: Initial weight: 130.09 kg Initial weight in pounds: 286.80 Height: 5 ft 1 in Initial BMI: 54.1 Last weight: Current weight: 131.542 kg Current weight in pounds: 290.00 Current BMI: 54.8 [place] body weight (based on NIH guidelines): 47.627 kg Excess body weight loss: The patient is a 38 year-old F who presents for Bariatric Assessment. She is living in foster care. She was last 10 years ago trying. She is trying for a sleeve. She has been living in [facility] homes. She has gained more weight. She was highest 301 pounds. She lost weight with exercise and weight loss. She was not on medications for weight loss except trulicity. No reflux. She has foot pain and has foot braces. Knee replacement pending. No hips. Has lower back pain. Has sleep apnea. Has diabetes. NO family members with weight. NO IBD in the family. No DVTs. Possible family with blood clots. NO esophageal or stomach cancer. NO food allergies. She wants to be 150 pounds. She needs [employer] medicare applies. Past Medical History Past Medical History: Memory Impairment, Sleep Apnea/CPAP/BIPAP Additional Past Medical History / Comment(s): narcolepsy, diabetes incipedus, varicos veins, History of Any Multi-Drug Resistant Organisms: None Reported Additional Past Surgical History / Comment(s): Brain Tumor removal x2 1998 and 2000 Past Anesthesia/Blood Transfusion Reactions: No Reported Reaction Smoking Status: Never smoker - Past Family History Mother Family Medical History: Diabetes Mellitus Surgical - Exam Vital Signs Temp Pulse Resp BP 98.3 F 76 16 109/72 08/02/23 16:13 08/02/23 16:13 08/02/23 16:13 08/02/23 16:13 Bariatric Checklist Checklist: Plan: Checklist: EGD: 1. Hiatal hernia: 2. H. Pylori: HgbA1c: Vitamin D: Smoking: Never smoker Primary care physician referral: Psychiatry clearance: Cardiology clearance: Sleep study: Diet journal: VTE risk score: VTE risk level: Rehab needs at discharge:
== END ==
LOC: BARWHC3 14:34
PROVIDERS: ATTEND Surgery Plastic and Reconstructive Surgery
DX: E66.01 Morbid (severe) obesity due to excess calories (principal); Z53.9 Procedure and treatment not carried out, unspecified reason
CPT/HCPCS: 99202

== ENCOUNTER → 2023-11-27 | Outpatient (CLI) | payer MEDICARE, OTHER ==
[2023-11-27 12:19] VITALS: BP 106/68; PULSE 63; RESP 18; TEMP 97.7
--- NOTE | 2023-11-27 14:07 | P.PROGSL ---
Subjective DATE: 11/27/2023 FOLLOW UP VISIT. Patient with obstructive sleep apnea hypopnea syndrome return to sleep center for follow-up visit. Information from previous visit have been reviewed. Patient is using PAP equipment every night for the whole night, getting PAP supplies in time. The patient does not have significant problems with the mask, PAP unit and humidification. [place] sleepiness scale is increased to 15. I checked information from PAP unit. PAP unit pressure 10-14, average 13 cm H2O. Usage is 50% for more then 4 hours, average 3.3 hours per night. Leak is 25 l/m, which is in acceptable range. Apnea Hypopnea Index is increased to 12.4, which include central 0.6. MEDICATIONS have been reviewed, please see below. During physical exam: GENERAL: A pleasant patient without any distress. VITAL SIGNS: Please see below, weight is 197.2 lbs. HEENT: PERRLA, EOMI.low position of soft palate, Mallapati 4. NECK: Supple. No JVD. LUNGS: Clear to percussion and to auscultation. Good air exchange. No wheezing or rhonchi. HEART: S1, S2 regular. ABDOMEN: Soft and nontender. Obese EXTREMITIES: No clubbing or cyanosis. PHYSICIAN OFFICE ASSISTANT: Awake, alert, and oriented x3. No focal deficit. Impressions: 1. Obstructive sleep apnea-hypopnea syndrome. Patient demonstrated low compliance with treatment, apnea hypopnea index increased to 12.4. 2. Obesity, BMI 57.2. 3. Hypothyroidism. 4. History of depression. 5. History of prediabetes mellitus. 6. History of low level of growth hormone. 7. Status post surgical treatment for craniopharyngioma. I increased range of the pressure in CPAP unit to the level 10-16 cm of water. Plan: 1. Continue using PAP equipment every night for the whole night, patient pr omised to follow recommendations. 2. Sleep hygiene with regular time in bed for at least 7.5-8 hours 3. PAP unit should stay lower then position of the head. 4. Advised patient to remove all remaining water from humidifier canister daily and make it dry after each usage. Refill canister with fresh distilled water before each usage. 5. Watching and losing weight. 6. Precautions related to driving. No driving if feel any sleepiness. 7. I will maintain prescription for PAP supplies including mask, tube, filters. 8. Follow up visit in 6 months or earlier if patient has any problems. Thank you very much for allowing me to participate in the management of your patient. Narendra Stevenson MD, PhD, FAASM. Diplomat of [place] [employer], Sleep Medicine Board by [place] [employer] Secondary Connector Armature of [facility] [place] Objective - Vital Signs Vital Signs: Vital Signs Temp 97.7 F 11/27/23 12:18 Pulse 63 11/27/23 12:18 Resp 18 11/27/23 12:18 BP 106/68 11/27/23 12:18 Pulse Ox 100 11/27/23 12:18 FiO2 Intake & Output 11/26/23 11/27/23 11/27/23 18:59 06:59 18:59 Weight 134.774 kg Home Medications: Home Medications Medication Instructions Recorded Confirmed Type Desmopressin Acetate 0.1 mg PO BID 03/31/20 11/27/23 History Meloxicam 15 mg PO DAILY 03/31/20 01/26/22 History Mirabegron [Myrbetriq] 50 mg PO DAILY 03/31/20 01/26/22 History Potassium Chloride [Klor-Con M10] 10 meq PO BID 03/31/20 11/27/23 History Pravastatin Sodium [Pravachol] 20 mg PO DAILY 03/31/20 11/27/23 History Sertraline [Zoloft] 200 mg PO DAILY 03/31/20 11/27/23 History metFORMIN HCL [metFORMIN HCL ER] 500 mg PO DAILY 03/31/20 01/26/22 History Hydrocortisone [Cortef] 15 mg PO DAILY 30 Days #45 tab 04/03/20 11/27/23 Rx Hydrocortisone [Cortef] 7.5 mg PO DAILY@1600 01/26/22 11/27/23 History Levothyroxine Sodium [Synthroid] 175 mcg PO DAILY 01/26/22 11/27/23 History Lisdexamfetamine Dimesylate 40 mg PO DAILY 01/26/22 11/27/23 History [Vyvanse] risperiDONE [RisperDAL] 1 mg PO HS 01/26/22 11/27/23 History cefUROXime axetiL [Ceftin] 500 mg PO BID #6 tab 01/29/22 Rx Acetaminophen Tab [Tylenol] 650 mg PO Q4H 11/27/23 11/27/23 History Aspirin 81 mg PO DAILY 11/27/23 11/27/23 History Bismuth Subsalicylate [Kaopectate] 262 mg PO DAILY 11/27/23 11/27/23 History Cholecalciferol (Vitamin D3) 2,000 mcg PO DAILY 11/27/23 11/27/23 History [Vitamin D3 (50 Mcg = 2000 Iu)] Dulaglutide [Trulicity] 4.5 mg SQ WEEKLY 11/27/23 11/27/23 History Lactobacillus Acidophilus 1 each PO DAILY 11/27/23 11/27/23 History [Acidophilus] Loratadine [Claritin] 10 mg PO DAILY 11/27/23 11/27/23 History Magnesium Hydroxide [Milk of 1,200 mg PO DAILY 11/27/23 11/27/23 History Magnesia] Methenamine/Sodium Salicylate [Azo 250 mg PO DAILY 11/27/23 11/27/23 History Urinary Tract Defense Tab] Phenazopyridine HCl 200 mg PO TID 11/27/23 11/27/23 History bisacodyL 10 mg 11/27/23 History diphenhydrAMINE [Benadryl] 25 mg PO TID PRN 11/27/23 11/27/23 History lisinopriL 2.5 mg PO DAILY 11/27/23 11/27/23 History
== END ==
LOC: 3 N SLEEP 11:11
PROVIDERS: ATTEND Internal Medicine
DX: G47.33 Obstructive sleep apnea (adult) (pediatric) (principal); E66.9 Obesity, unspecified; E03.9 Hypothyroidism, unspecified; F32.A Depression, unspecified; R73.03 Prediabetes; Z86.39 Personal history of other endocrine, nutritional and metabolic disease; Z98.890 Other specified postprocedural states; Z86.011 Personal history of benign neoplasm of the brain; Z68.43 Body mass index [BMI] 50.0-59.9, adult; Z99.89 Dependence on other enabling machines and devices; Z79.84 Long term (current) use of oral hypoglycemic drugs; Z79.890 Hormone replacement therapy
CPT/HCPCS: 99212

== ENCOUNTER → 2024-07-03 | Outpatient (CLI) | payer MEDICARE, OTHER ==
[2024-07-03 11:03] VITALS: BP 109/71; PULSE 88; RESP 16; TEMP 97.5
--- NOTE | 2024-07-03 11:43 | P.PROGSL ---
Subjective DATE: 07/03/2024 FOLLOW UP VISIT. Patient with obstructive sleep apnea hypopnea syndrome return to sleep center for follow-up visit. Information from previous visit have been reviewed. Patient is using PAP equipment most of the nights. The patient does not have significant problems with the mask, PAP unit and humidification. [place] sleepiness scale is in very high range of 22. I checked information from PAP unit. PAP unit pressure 10-16, average 11.9 cm H2O. Usage is 40% of nights for short period of time. Leak is increased to 29 l/m. Apnea Hypopnea Index is slightly increased 8.8. MEDICATIONS have been reviewed, please see below. During physical exam: GENERAL: A pleasant patient without any distress. VITAL SIGNS: Please see below, weight is 300 lbs. HEENT: PERRLA, EOMI.low position of soft palate, Mallapati 4 . NECK: Supple. No JVD. LUNGS: Clear to percussion and to auscultation. Good air exchange. No wheezing or rhonchi. HEART: S1, S2 regular. ABDOMEN: Soft and nontender. Obese EXTREMITIES: No clubbing or cyanosis. PERINATAL INSTRUCTOR: Awake, alert, and oriented x3. No focal deficit. Impressions: 1. Obstructive sleep apnea-hypopnea syndrome. Patient demonstrated low compliance with treatment. 2. Obesity, BMI 58.5. 3. Hypothyroidism. 4. History of prediabetes mellitus. 5. History of depression. 6. History of low level of growth hormone. 7. Status post surgical treatment for craniopharyngioma. I increased range of the pressure in CPAP unit to the level 10-17 cm of water. Plan: 1. Continue using PAP equipment every night for the whole night. Patient promised to follow recommendations. 2. Sleep hygiene with regular time in bed for at least 7.5-8 hours 3. PAP unit should stay lower then position of the head. 4. Advised patient to remove all remaining water from humidifier canister daily and make it dry after each usage. Refill canister with fresh distilled water before each usage. 5. Watching and losing weight. 6. Precautions related to driving. No driving if feel any sleepiness. 7. Follow up visit in 6 months or earlier if patient has any problems. Thank you very much for allowing me to participate in the management of your patient. Narendra Stevenson MD, PhD, FAASM. Diplomat of [employer], Sleep Medicine Board by [employer] Lubrication Worker of [facility] [place] Objective - Vital Signs Vital Signs: Vital Signs Temp 97.5 F L 07/03/24 11:02 Pulse 88 07/03/24 11:02 Resp 16 07/03/24 11:02 BP 109/71 07/03/24 11:02 Pulse Ox 98 07/03/24 11:02 FiO2 Intake & Output 07/02/24 07/03/24 07/03/24 18:59 06:59 18:59 Weight 136.078 kg Home Medications: Home Medications Medication Instructions Recorded Confirmed Type Desmopressin Acetate 0.1 mg PO BID 03/31/20 11/27/23 History Meloxicam 15 mg PO DAILY 03/31/20 01/26/22 History Mirabegron [Myrbetriq] 50 mg PO DAILY 03/31/20 01/26/22 History Potassium Chloride [Klor-Con M10] 10 meq PO BID 03/31/20 11/27/23 History Pravastatin Sodium [Pravachol] 20 mg PO DAILY 03/31/20 11/27/23 History Sertraline [Zoloft] 200 mg PO DAILY 03/31/20 11/27/23 History metFORMIN HCL [metFORMIN HCL ER] 500 mg PO DAILY 03/31/20 01/26/22 History Hydrocortisone [Cortef] 15 mg PO DAILY 30 Days #45 tab 04/03/20 11/27/23 Rx Hydrocortisone [Cortef] 7.5 mg PO DAILY@1600 01/26/22 11/27/23 History Levothyroxine Sodium [Synthroid] 175 mcg PO DAILY 01/26/22 11/27/23 History Lisdexamfetamine Dimesylate 40 mg PO DAILY 01/26/22 11/27/23 History [Vyvanse] risperiDONE [RisperDAL] 1 mg PO HS 01/26/22 11/27/23 History cefuroxime axetiL [Ceftin] 500 mg PO BID #6 tab 01/29/22 Rx Acetaminophen Tab [Tylenol] 650 mg PO Q4H 11/27/23 11/27/23 History Aspirin 81 mg PO DAILY 11/27/23 11/27/23 History Bismuth Subsalicylate [Kaopectate] 262 mg PO DAILY 11/27/23 11/27/23 History Cholecalciferol (Vitamin D3) 2,000 mcg PO DAILY 11/27/23 11/27/23 History [Vitamin D3 (50 Mcg = 2000 Iu)] Dulaglutide [Trulicity] 4.5 mg SQ WEEKLY 11/27/23 11/27/23 History Lactobacillus Acidophilus 1 each PO DAILY 11/27/23 11/27/23 History [Acidophilus] Loratadine [Claritin] 10 mg PO DAILY 11/27/23 11/27/23 History Magnesium Hydroxide [Milk of 1,200 mg PO DAILY 11/27/23 11/27/23 History Magnesia] Methenamine/Sodium Salicylate [Azo 250 mg PO DAILY 11/27/23 11/27/23 History Urinary Tract Defense Tab] Phenazopyridine HCl 200 mg PO TID 11/27/23 11/27/23 History bisacodyL 10 mg 11/27/23 History diphenhydrAMINE [Benadryl] 25 mg PO TID PRN 11/27/23 11/27/23 History lisinopriL 2.5 mg PO DAILY 11/27/23 11/27/23 History
== END ==
LOC: 3 N SLEEP 10:45
PROVIDERS: ATTEND Internal Medicine
DX: G47.33 Obstructive sleep apnea (adult) (pediatric) (principal); E66.9 Obesity, unspecified; E03.9 Hypothyroidism, unspecified; Z86.39 Personal history of other endocrine, nutritional and metabolic disease; Z68.43 Body mass index [BMI] 50.0-59.9, adult; Z86.59 Personal history of other mental and behavioral disorders; Z98.890 Other specified postprocedural states
CPT/HCPCS: 99212